=== PATIENT | male | born 1965 | race American Indian/Alaskan Native ===

== ENCOUNTER 2017-04-13 07:16 | Emergency (ER) | payer MEDICAID ==
[2017-04-13 07:53] VITALS: TEMP 98.5
--- NOTE | 2017-04-13 07:59 | ED PDOC ---
Arrival/HPI - General Chief Complaint: Flu-like Symptoms Time Seen by Provider: 04/13/17 07:18 - History of Present Illness Narrative History of Present Illness (Text): 04/13/17 07:48 Pt is a 51 yo M with PMH of HTN presents to ED with 4 day history of flu-like symptoms. Pt complains of productive cough with yellow sputum, alternating fever and chills, diffuse body aches, sore throat, shortness of breath, decreased PO intake, constipation, and sinus congestion. Pt states that several of his co-workers have presented with similar symptoms. Pt denies ear pain, change in vision, change in voice, CP, n/v/d, abdominal pain, [place], or dizziness. Pt also complaining of cut on left ear after shaving and right 2nd toe pain/ discoloration without injury. Pt states that toe started to bother him while at work 1 week ago. Over this time patient states that swelling, discoloration, and pain has decreased overall, but still persists. Pt denies any gait changes, ROM change, or sensation change. (Gray Guo) Past Medical History - Provider Review Nursing Documentation Reviewed: Yes - Infectious Disease Hx of Infectious Diseases: None - Cardiac Hx Hypertension: Yes - Pulmonary Hx Bronchitis: Yes - Psychiatric Hx Substance Use: No - Surgical History Hx Eye Surgery: Yes (right eye socket repair) - Anesthesia Hx Anesthesia: Yes Hx Anesthesia Reactions: No Hx Malignant Hyperthermia: No Family/Social History - Physician Review Nursing Documentation Reviewed: Yes Family/Social History: Other (Non-contributory) Smoking Status: Former Smoker Hx Alcohol Use: No Hx Substance Use: No Allergies/Home Meds Allergies/Adverse Reactions: Allergies No Known Allergies Allergy (Verified 04/13/17 07:33) Home Medications: Home Meds Medication Instructions Recorded Confirmed Lisinopril [Zestril] 10 mg PO DAILY 04/13/17 04/13/17 amLODIPine [Norvasc] 1 tab PO DAILY 04/13/17 04/13/17 Review of Systems - Review of Systems Constitutional: Fatigue, Fevers Eyes: absent: Vision Changes ENT: Sore Throat, Sinus Congestion. absent: Rhinorrhea, Epistaxis Respiratory: SOB, Cough, Sputum Cardiovascular: Normal Gastrointestinal: Constipation. absent: Abdominal Pain, Diarrhea, Nausea, Vomiting Genitourinary Male: Normal Musculoskeletal: Myalgias Skin: Normal Neurological: Normal Endocrine: Normal Hemo/Lymphatic: Normal Psychiatric: Normal Physical Exam Vital Signs Reviewed: Yes Temperature: Afebrile Blood Pressure: Normal Pulse: Regular Respiratory Rate: Normal Appearance: Positive for: Well-Appearing Pain Distress: Mild Mental Status: Positive for: Alert and Oriented X 3 - Systems Exam Head: Present: Atraumatic, Normocephalic Extroacular Muscles: Present: EOMI Conjunctiva: Present: Normal Mouth: Present: Dry Pharnyx: Present: Normal. No: ERYTHEMA, EXUDATE, TONSILS ENLARGED Nose (External): Present: Atraumatic Nose (Internal): Present: Normal Inspection Neck: Present: Normal Range of Motion. No: Paraspinal Tenderness, Lymphadenopathy Respiratory/Chest: Present: Clear to Auscultation. No: Respiratory Distress, Accessory Muscle Use, Wheezes, Rales, Rhonchi Cardiovascular: Present: Regular Rate and Rhythm, Normal S1, S2. No: Murmurs, Rub, Gallop Abdomen: No: Tenderness, Distention, Rebound, Guarding Back: Present: Normal Inspection Upper Extremity: Present: Normal Inspection Lower Extremity: Present: Other (discoloration, TTP, swelling of right 2nd toe. No fluctuance.) Neurological: Present: GCS=15, CN II-XII Intact, Speech Normal Skin: Present: Warm, Dry, Normal Color Lymphatic: No: Cervical Adenopathy Psychiatric: Present: Alert, Oriented x 3 Vital Signs Temp Pulse Resp BP Pulse Ox 04/13/17 09:17 79 18 132/89 98 04/13/17 07:50 98.5 F 69 17 129/86 96 04/13/17 07:21 98.7 F 68 19 136/84 99 Medical Decision Making ED Course and Treatment: Patient Seen With Resident: In agreement with resident note which contains more details about the patient. Patient was seen and evaluated with resident. Came up with plan and treatment together. Patient is afebrile in ED. No respiratory distress. Nontoxic appearing. Symptoms for four days. Lab work reviewed with patient. Influenza negative. Suspect viral illness vs. bronchitis. Afebrile, nontoxic appearing in ED. Will d/c with abx for possible bronchitis, treatment of possible early toe cellulitis. Stressed need for follow-up. No streaking noted in foot, strong pulses. No calf pain. 04/13/17 09:43 (Juan A Farah) 04/13/17 08:08 Assessment: 51 yo M presents to ED with 4 day history of flu like symptoms and 1 week history of right 2nd toe pain/swelling. Plan: - CBC - CMP - Influenza - 500 cc NS bolus - Reassess and Disposition 04/13/17 09:35 Influenza negative. Labs suggestive of viral illness likely URI, bronchitis. Results discussed with patient. Instructed patient complete 7 day course of antibiotics and keep right 2nd toe clean and use warm soaks. Informed patient that supportive care would be adequate for treatment. Impression: Acute bronchitis, cellulitis of right 2nd toe (Gray Guo) - Lab Interpretations Lab Results: 04/13/17 08:15 04/13/17 08:15 Lab Results 04/13/17 08:15: Sodium 141, Potassium 3.7, Chloride 108 H, Carbon Dioxide 25, Anion Gap 13, BUN 17, Creatinine 1.1, Est GFR ( Amer) > 60, Est GFR (Non- Af Amer) > 60, Random Glucose 100, Calcium 9.2, Total Bilirubin 1.1, AST 58, ALT 63 H, Alkaline Phosphatase 60, Total Protein 7.5, Albumin 3.9, Globulin 3.5 , Albumin/Globulin Ratio 1.1 04/13/17 08:15: WBC 4.4 L, RBC 4.80, Hgb 13.2 L, Hct 41.7 L, MCV 86.9, MCH 27.5 , MCHC 31.7, RDW 14.1, Plt Count 220, MPV 10.1, Gran % 48.2 L, Lymph % (Auto) 42.5 H, Cocke % (Auto) 7.5 H, Eos % (Auto) 1.1 L, Baso % (Auto) 0.7, Gran # 2.13 , Lymph # (Auto) 1.9, Cocke # (Auto) 0.3, Eos # (Auto) 0.1, Baso # (Auto) 0.03 04/13/17 07:50: Influenza Typ A,B (EIA) Negative for flu a/b - Medication Orders Current Medication Orders: Discontinued Medications Sodium Chloride (Sodium Chloride 0.9%) 500 mls @ 999 mls/hr IV .Q31M STA Stop: 04/13/17 08:33 Last Admin: 04/13/17 08:18 Dose: 999 mls/hr eMAR Start Stop Document 04/13/17 08:18 ABIOLA (Rec: 04/13/17 08:18 ABIOLA [id number]) Intravenous Solution Start Date 04/13/17 Start Time 08:18 End Date 04/13/17 End time 08:48 Total Infusion Time 30 Disposition/Present on Arrival - Present on Arrival Any Indicators Present on Arrival: No History of DVT/PE: No History of Uncontrolled Diabetes: No Urinary Catheter: No History of Decub. Ulcer: No History Surgical Site Infection Following: None - Disposition Have Diagnosis and Disposition been Completed?: Yes Disposition Time: 09:33 Patient Plan: Discharge - Disposition Diagnosis: Acute bronchitis, Cellulitis of second toe of right foot Disposition: HOME/ ROUTINE Condition: STABLE Discharge Instructions (ExitCare): Acute Bronchitis, Cellulitis (ED) Additional Instructions: 1. Complete 7 day course of antibiotics 2. Use over the counter medications for cough and pain 3. Maintain adequate hydration 4. Increase diet as tolerated 5. [facility] [place] within 1 week 6. Return to ED if symptoms worsen Prescriptions: Amoxicillin/Clavulanate [Augmentin 875 MG-125 MG] 1 tab PO BID #14 tab Referrals: PCP,NO [Primary Care Provider] - Follow up with primary [facility] [place] [Outside] - Follow up with primary [facility] [Outside] - Follow up with primary Forms: [employer] [facility] ([place]), WORK NOTE
[2017-04-13] MEDS ORDERED: Sodium Chloride 0.9% 500 ML IV STA (08:03)
[2017-04-13 08:41] LABS: BASO # 0.03 K/mm3 (0.0-2.0); BASO % 0.7 % (0.0-3.0); EOS # 0.1 (0.0-0.7); EOS % 1.1 % (1.5-5.0); GRAN # 2.13 (1.4-6.5); GRAN % 48.2 % (50.0-68.0); HEMOGLOBIN 13.2 g/dL (14.0-18.0); LYMPH # 1.9 (1.2-3.4); LYMPH % 42.5 % (22.0-35.0); MEAN CELL VOLUME 86.9 fl (80.0-105.0); MEAN CORPUSCULAR HEMOGLOBIN 27.5 pg (25.0-35.0); MEAN CORPUSCULAR HGB CONC 31.7 g/dl (31.0-37.0); MEAN PLATELET VOLUME 10.1 fl (7.0-11.0); MONO # 0.3 (0.1-0.6); MONO % 7.5 % (1.0-6.0); RBC 4.8 10^6/uL (3.5-6.1); RED CELL DISTRIBUTION WIDTH 14.1 % (11.5-14.5); WHITE BLOOD COUNT 4.4 10^3/ul (4.5-11.0)
[2017-04-13 08:55] LABS: ALB/GLOB RATIO 1.1 (1.1-1.8); ALBUMIN 3.9 g/dL (3.0-4.8); ALT/SGPT 63 U/L (7-56); AST/SGOT 58 U/L (17-59); BLOOD UREA NITROGEN 17 mg/dL (7-21); CALCIUM 9.2 mg/dL (8.4-10.5); GFR AFRICAN-AMERICAN > 60; GFR NON-AFRICAN AMERICAN > 60
[2017-04-13 09:43] VITALS: BP 132/89; PULSE 79; RESP 18; O2SAT 98
== END 2017-04-13 09:47 | disposition home or self-care (01) ==
LOC: ED 07:16
DX: J20.9 Acute bronchitis, unspecified (principal); L03.031 Cellulitis of right toe; I10 Essential (primary) hypertension; Z87.891 Personal history of nicotine dependence
CPT/HCPCS: 80053; 85025; 87804; 99284; J7040

== ENCOUNTER 2017-07-01 11:41 | Emergency (ER) | payer OTHER ==
[2017-07-01 11:47] VITALS: BMI 27.3
[2017-07-01 11:48] VITALS: BP 129/88; RESP 18; TEMP 97.5
[2017-07-01] MEDS ORDERED: Oxycodone/Acetaminophen 5/325 mg Tab PO STA (12:08)
--- NOTE | 2017-07-01 12:14 | ED PDOC ---
Arrival/HPI - General Chief Complaint: Lower Extremity Problem/Injury Time Seen by Provider: 07/01/17 12:04 Historian: Patient - History of Present Illness Narrative History of Present Illness (Text): 07/01/17 12:09 51 year old male, with past medical history of hypertension, presents to the Emergency Department complaining of left heal discomfort to the achilles region since 1 week (11days). Patient informs worsening discomfort today, described it at least 10/10 in pain/severity and unrelieved after taking motrin. 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 PMD: Dr. Monty Jean-Baptiste pt works at [employer] Time/Duration: > week (11 days) Symptom Onset: Gradual Symptom Course: Worsening Quality: Aching Severity Level: 10 Activities at Onset: Light Context: Home Past Medical History - Provider Review Nursing Documentation Reviewed: Yes - Travel History Have you recently traveled outside [place] w/in the past 3 mons?: No - Past History Past History: No Previous - Infectious Disease Hx of Infectious Diseases: None - Cardiac Hx Hypertension: Yes - Pulmonary Hx Bronchitis: Yes - Psychiatric Hx Substance Use: No - Surgical History Hx Eye Surgery: Yes (right eye socket repair) - Anesthesia Hx Anesthesia: Yes Hx Anesthesia Reactions: No Hx Malignant Hyperthermia: No Family/Social History - Physician Review Nursing Documentation Reviewed: Yes Family/Social History: No Known Family HX Smoking Status: Former Smoker Hx Alcohol Use: No Hx Substance Use: No Hx Substance Use Treatment: No Allergies/Home Meds Allergies/Adverse Reactions: Allergies No Known Allergies Allergy (Verified 04/13/17 07:33) Home Medications: Home Meds Medication Instructions Recorded Confirmed Lisinopril [Zestril] 10 mg PO DAILY 04/13/17 07/01/17 amLODIPine [Norvasc] 1 tab PO DAILY 04/13/17 07/01/17 Review of Systems - Physician Review All systems were reviewed & negative as marked: Yes - Review of Systems Constitutional: Normal. absent: Fevers Eyes: Normal ENT: Normal Respiratory: Normal. absent: SOB Cardiovascular: Normal. absent: Chest Pain Gastrointestinal: Normal. absent: Abdominal Pain, Stool Changes, Diarrhea, Nausea, Vomiting Genitourinary Male: Normal. absent: Urinary Output Changes Musculoskeletal: Other (left heal discomfort to achilles region) Skin: Normal Neurological: Normal Endocrine: Normal Hemo/Lymphatic: Normal Psychiatric: Normal Physical Exam - Physical Exam Narrative Physical Exam (Text): 07/01/17 12:17 General: alert/awake, GCS = 15, oriented x 3, resting in bed, uncomfortable, cooperative, interactive; NAD Head: NC/AT EYE: PERRLA, EOMI, sclera anicteric, no nystagmus, no photophobia; wearing eye glasses Facial: WNL Oral: uvula/tongue are midline, no exudate/lesions, no drooling/stridor, no dysphonia; intact dentitions NECK: intact ROM, no midline tenderness, no nuchal rigidity, no meningeal signs ; no step off Chest: CTA b/l, no w/r/r; no tachypenia, no accessory muscle use noted Cardiac: +S1, +S2, no m/r/r, no tachycardia Abdominal: +BS, soft/nd/nt, well nourished patient; no masses/rebound/guarding/ rigidity; no reza's sign, no mcburney's point tenderness Extremities: intact ROM, strength 5/5 grossly intact in all limbs, neurovasc intact b/l; + ambulatory favoring left foot/leg; reflex +2/2; + left mid Achilles region of swelling is noted, + tender on exam, NON-fluctuant, no induration, no overlaying skin erythema BACK: no step off, no midline tenderness, NO crepitus, no gross deformities noted; Intact ROM SKIN: cap refill < 1 sec, no ulcerations, no petechiae, no rashes NEURO: CNII-XII WNL, no facial asymmetries, no slurr speech, oriented x 3 Psych: normal insight, normal affect; follows command with ease Vital Signs Reviewed: Yes Vital Signs Temp Pulse Resp BP Pulse Ox 07/01/17 11:47 97.5 F L 79 18 129/88 97 Temperature: Afebrile Blood Pressure: Normal Pulse: Regular Respiratory Rate: Normal Appearance: Positive for: Well-Appearing, Non-Toxic, Uncomfortable, Other (alert /awake, GCS = 15, oriented x 3, resting in bed, NAD, cooperative, follows command with ease) Pain Distress: None Mental Status: Positive for: Alert and Oriented X 3 - Systems Exam Head: Present: Atraumatic, Normocephalic Medical Decision Making ED Course and Treatment: 07/01/17 12:18 Impression: 51 year old male presents to the Emergency Department for left heal discomfort. I have considered all of the differential diagnostics regarding patient's chief medical complaints/ clinical findings, including but not limited to: rule out sprain unlikely fracture vs possible cyst vs. inflammatory disorder i.e. gout Plan: -- Motrin -- Oxycodone -- Crutches -- Reassess and disposition Progress Notes: 07/01/17 14:05 pt is resting in bed pt is not in any distress + 7-8/10 pain is noted but is improved compare to initial presentation pt is made aware of his medical results pt is encouraged no heavy weight bearing/prolonged standing/walking pt will f/u as directed pt will be discharged home Re-evaluation Time: 14:15 Reassessment Condition: Improving,but remains with symptoms - RAD Interpretation Narrative RAD Interpretations (Text): 07/01/17 14:29 PROCEDURE: Left Ankle Radiographs. HISTORY: left achilles/heal pain; no trauma COMPARISON: None FINDINGS: BONES: Normal. No fracture. JOINTS: Normal. No osteoarthritis. Ankle mortise maintained. Talar dome intact SOFT TISSUES: Normal. OTHER FINDINGS: Incidental os peroneum accessory ossification center IMPRESSION: No fracture or lytic lesion. . No prominent calcaneal spurring. No gross calcaneal stress fracture Incidentally noted os peroneum accessory ossification center -bordering the cuboid PROCEDURE: Left Foot Radiographs. HISTORY: left achilles/heal pain; no trauma COMPARISON: None. FINDINGS: BONES: No prominent calcaneal spurring. No gross calcaneal stress fracture Incidentally noted os peroneum accessory ossification center -bordering the cuboid JOINTS: Minimal 1st metatarsal-phalangeal joint space narrowing early degenerative changes inferred SOFT TISSUES: Normal. OTHER FINDINGS: Sissoring of the 4th and 5th toes over the 3rd and 4th toes respectively. IMPRESSION: No fracture or lytic lesion. No calcaneal spur or calcaneal stress fracture. Incidentally noted os peroneum accessory ossification center -bordering the cuboid Radiology Orders: 07/01/17 12:54 FOOT LEFT 3 VIEWS ROUTINE [RAD] Stat 07/01/17 12:55 ANKLE LEFT 3 VIEWS ROUTINE [RAD] Stat Gsa Coordinator: Radiologist - Medication Orders Current Medication Orders: Discontinued Medications Ibuprofen (Motrin Tab) 600 mg PO STAT STA Stop: 07/01/17 12:09 Last Admin: 07/01/17 12:25 Dose: Not Given Non-Admin Reason: Patient Refused Oxycodone/Acetaminophen (Percocet 5/325 Mg Tab) 1 tab PO STAT STA Stop: 07/01/17 12:09 Last Admin: 07/01/17 12:25 Dose: Not Given Non-Admin Reason: Patient Refused - Scribe Statement The provider has reviewed the documentation as recorded by the Scribe Abigail Fay. All medical record entries made by the Scribe were at my direction and personally dictated by me. I have reviewed the chart and agree that the record accurately reflects my personal performance of the history, physical exam, medical decision making, and the department course for this patient. I have also personally directed, reviewed, and agree with the discharge instructions and disposition. Disposition/Present on Arrival - Present on Arrival Any Indicators Present on Arrival: No History of DVT/PE: No History of Uncontrolled Diabetes: No Urinary Catheter: No History of Decub. Ulcer: No History Surgical Site Infection Following: None - Disposition Have Diagnosis and Disposition been Completed?: Yes Diagnosis: Foot pain, left, Achilles tendon pain Disposition: HOME/ ROUTINE Disposition Time: 14:31 Patient Plan: Discharge Condition: STABLE Discharge Instructions (ExitCare): Achilles Tendinopathy (DC), Achilles Tendinopathy Exercises Print Language: MOROCCAN Additional Instructions: Make sure to see your doctor in 1-2 days DRINK PLENTY OF FLUIDS take your medications as prescribed lora wrap your left foot avoid heavy lifting avoid prolonged standing/walking STOP SMOKING if you smoke RETURN TO ED IF worse pain, cant breath, persistent vomiting, high fever >101- 102 for hours, altered behavior, slurr speech, facial changes, focal weakness ( arm/leg or both), unable to urinate, heavy/persistent bleeding, passing out, chest pain, or other medical emergencies Prescriptions: Ibuprofen [Motrin] 600 mg PO TID PRN #30 tab PRN Reason: Pain, Mild (1-3) Referrals: Monty Jean-Baptiste MD [Primary Care Provider] - Follow up with primary Stu Jack MD [Staff Provider] - Follow up with primary Will Saldaña DPM [Staff Provider] - Follow up with primary Forms: [facility] (Filipino), WORK NOTE
--- NOTE | 2017-07-01 14:08 | RAD ---
PROCEDURE: Left Ankle Radiographs. HISTORY: left achilles/heal pain; no trauma COMPARISON: None FINDINGS: BONES: Normal. No fracture. JOINTS: Normal. No osteoarthritis. Ankle mortise maintained. Talar dome intact SOFT TISSUES: Normal. OTHER FINDINGS: Incidental os peroneum accessory ossification center IMPRESSION: No fracture or lytic lesion. . No prominent calcaneal spurring. No gross calcaneal stress fracture Incidentally noted os peroneum accessory ossification center -bordering the cuboid
--- NOTE | 2017-07-01 14:10 | RAD ---
PROCEDURE: Left Foot Radiographs. HISTORY: left achilles/heal pain; no trauma COMPARISON: None. FINDINGS: BONES: No prominent calcaneal spurring. No gross calcaneal stress fracture Incidentally noted os peroneum accessory ossification center -bordering the cuboid JOINTS: Minimal 1st metatarsal-phalangeal joint space narrowing early degenerative changes inferred SOFT TISSUES: Normal. OTHER FINDINGS: Sissoring of the 4th and 5th toes over the 3rd and 4th toes respectively. IMPRESSION: No fracture or lytic lesion. No calcaneal spur or calcaneal stress fracture. Incidentally noted os peroneum accessory ossification center -bordering the cuboid
[2017-07-01 14:43] VITALS: PULSE 62; O2SAT 98
== END 2017-07-01 14:41 | disposition home or self-care (01) ==
LOC: ED 11:41
DX: M79.672 Pain in left foot (principal); M76.62 Achilles tendinitis, left leg

== ENCOUNTER 2017-08-30 10:38 | Emergency (ER) | payer OTHER ==
[2017-08-30 10:38] VITALS: BMI 27.3
--- NOTE | 2017-08-30 11:56 | ED PDOC ---
Arrival/HPI - General Chief Complaint: Flu-like Symptoms Time Seen by Provider: 08/30/17 11:14 Historian: Patient - History of Present Illness Narrative History of Present Illness (Text): 08/30/17 11:51 51yo male with past medical history of hypertension who present with complaint of generalized bodyache, poor appetite, rhinorrhea, chills, subjective fever x 2days. He also complaint of rash to the back of his neck for 5weeks. States he was given Ketoconazole and cloritimazole without relieve. Reports mild intermittent nonproductive cough. He denies chest pain, SOB, diaphoresis, nausea , vomiting, abdominal pain, nuchal ridgity, sick contact, travel. Past Medical History - Provider Review Nursing Documentation Reviewed: Yes - Past History Past History: No Previous - Infectious Disease Hx of Infectious Diseases: None - Cardiac Hx Cardiac Disorders: Yes Hx Hypertension: Yes - Pulmonary Hx Respiratory Disorders: Yes Hx Bronchitis: Yes - Neurological Hx Neurological Disorder: No - HEENT Hx HEENT Disorder: No - Renal Hx Renal Disorder: No - Endocrine/Metabolic Hx Endocrine Disorders: No - Hematological/Oncological Hx Blood Disorders: No - Integumentary Hx Dermatological Disorder: Yes Other/Comment: TINEA - Musculoskeletal/Rheumatological Hx Musculoskeletal Disorders: No - Gastrointestinal Hx Gastrointestinal Disorders: No - Genitourinary/Gynecological Hx Genitourinary Disorders: No - Psychiatric Hx Psychophysiologic Disorder: No Hx Substance Use: No - Surgical History Hx Eye Surgery: Yes (right eye socket repair) Hx Orthopedic Surgery: Yes (R KNEE) - Anesthesia Hx Anesthesia: Yes Hx Anesthesia Reactions: No Hx Malignant Hyperthermia: No Family/Social History - Physician Review Nursing Documentation Reviewed: Yes Family/Social History: Unknown Family HX Smoking Status: Former Smoker Hx Alcohol Use: No Hx Substance Use: No Hx Substance Use Treatment: No Allergies/Home Meds Allergies/Adverse Reactions: Allergies No Known Allergies Allergy (Verified 08/30/17 11:02) Home Medications: Home Meds Medication Instructions Recorded Confirmed Lisinopril [Zestril] 10 mg PO DAILY 04/13/17 08/30/17 amLODIPine [Norvasc] 1 tab PO DAILY 04/13/17 08/30/17 Review of Systems - Physician Review All systems were reviewed & negative as marked: Yes - Review of Systems Constitutional: Fatigue, Fevers Eyes: Normal ENT: Rhinorrhea Respiratory: Cough. absent: SOB, Sputum, Wheezing Cardiovascular: Normal Gastrointestinal: Normal Genitourinary Male: Normal Musculoskeletal: Normal Skin: Normal Neurological: Normal Endocrine: Normal Hemo/Lymphatic: Normal Psychiatric: Normal Physical Exam Vital Signs Reviewed: Yes Vital Signs Temp Pulse Resp BP Pulse Ox 08/30/17 12:38 97.9 F 88 18 120/68 100 08/30/17 12:35 97.9 F 88 18 120/68 100 08/30/17 11:02 98.8 F 69 16 124/82 97 Temperature: Afebrile Blood Pressure: Normal Pulse: Regular Respiratory Rate: Normal Appearance: Positive for: Well-Appearing, Non-Toxic, Comfortable Pain Distress: None Mental Status: Positive for: Alert and Oriented X 3 - Systems Exam Head: Present: Atraumatic, Normocephalic Pupils: Present: PERRL Extroacular Muscles: Present: EOMI Conjunctiva: Present: Normal Mouth: Present: Moist Mucous Membranes Neck: Present: Normal Range of Motion Respiratory/Chest: Present: Clear to Auscultation, Good Air Exchange. No: Respiratory Distress, Accessory Muscle Use, Wheezes, Decreased Breath Sounds, Rales, Retracting, Rhonchi, Tachypneic Cardiovascular: Present: Regular Rate and Rhythm, Normal S1, S2. No: Murmurs Abdomen: No: Tenderness, Distention, Peritoneal Signs Back: Present: Normal Inspection Upper Extremity: Present: Normal Inspection. No: Cyanosis, Edema Lower Extremity: Present: Normal Inspection. No: Edema Neurological: Present: GCS=15, CN II-XII Intact, Speech Normal Skin: Present: Warm, Dry, Rashes (scaly dry patchy rash noted on the posterior neck), Normal Color Psychiatric: Present: Alert, Oriented x 3, Normal Insight, Normal Concentration Medical Decision Making ED Course and Treatment: 08/30/17 18:50 Pt in emergency department for stated history. He was hemodynamically stable and in no distress in emergency department . Chest xray was NAD. Pt's PE was benign. he was treated symptomatically with ibuprofen for mylagia. Result was DW the pt. Pt likely have viral syndrome and was DC home with Tessalon perles and Ibuprofen 600mg. He was advised to drink plenty of fluid and rest. Referred to his PMD. - RAD Interpretation Radiology Orders: 08/30/17 11:21 CHEST TWO VIEWS (PA/LAT) [RAD] Stat - Medication Orders Current Medication Orders: Discontinued Medications Hydrocortisone Valerate (Westcort) 30 gm TOP ONCE STA Stop: 08/30/17 11:59 Last Admin: 08/30/17 12:34 Dose: 1 cre Ibuprofen (Motrin Tab) 600 mg PO STAT STA Stop: 08/30/17 11:23 Last Admin: 08/30/17 11:42 Dose: 600 mg MAR Pain/Vitals Document 08/30/17 11:42 [facility] (Rec: 08/30/17 11:43 [email or web address]) Pain Reassessment Is This A Pain ReAssessment? No Disposition/Present on Arrival - Present on Arrival Any Indicators Present on Arrival: No History of DVT/PE: No History of Uncontrolled Diabetes: No Urinary Catheter: No History of Decub. 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
[2017-08-30] MEDS ORDERED: Hydrocortisone Val 0.2% Cr 15 GM TUBE TOP STA (11:58)
[2017-08-30 12:39] VITALS: BP 120/68; PULSE 88; RESP 18; TEMP 97.9; O2SAT 100
== END 2017-08-30 12:40 | disposition home or self-care (01) ==
LOC: ED 10:38
DX: R21 Rash and other nonspecific skin eruption (principal); R05 Cough; R53.81 Other malaise; Z87.891 Personal history of nicotine dependence; I10 Essential (primary) hypertension

== ENCOUNTER 2017-09-07 11:44 | Emergency (ER) | payer OTHER ==
[2017-09-07 11:44] VITALS: BMI 27.3
[2017-09-07 11:50] VITALS: BP 126/86; PULSE 63; RESP 18; TEMP 97.9; O2SAT 99
--- NOTE | 2017-09-07 12:21 | ED PDOC ---
Arrival/HPI - General Historian: Patient - History of Present Illness Time/Duration: > week Symptom Course: Worsening - General Chief Complaint: Cough, Cold, Congestion Time Seen by Provider: 09/07/17 11:52 - History of Present Illness Narrative History of Present Illness (Text): 09/07/17 12:20 Patient is a 51 year old male with past medical history of HTN who presents to the ED complaining of cold like symptoms for 11 days. Patient states that he has been having productive cough, generalized body aches, decreased PO intake. He was seen in the ED on 08/30/17 for the same complaints. He was given Motrin and tessalon pearls for cough. CXR at that time was negative for active disease. He states that the cough has mildly improved, however he feels like his symptoms are getting worse. Admits to feeling hot/cold flashes. Denies fevers, N/V, changes in vision/hearing, chest pain, palpitations, sob, abdominal pain, urinary symptoms. Patient has an appointment on 09/11 to see his PMD. (Mary Haji) Past Medical History - Provider Review Nursing Documentation Reviewed: Yes - Past History Past History: No Previous - Infectious Disease Hx of Infectious Diseases: None - Cardiac Hx Cardiac Disorders: Yes Hx Hypertension: Yes - Pulmonary Hx Respiratory Disorders: Yes Hx Bronchitis: Yes - Neurological Hx Neurological Disorder: No - HEENT Hx HEENT Disorder: No - Renal Hx Renal Disorder: No - Endocrine/Metabolic Hx Endocrine Disorders: No - Hematological/Oncological Hx Blood Disorders: No - Integumentary Hx Dermatological Disorder: Yes Other/Comment: TINEA - Musculoskeletal/Rheumatological Hx Musculoskeletal Disorders: No - Gastrointestinal Hx Gastrointestinal Disorders: No - Genitourinary/Gynecological Hx Genitourinary Disorders: No - Psychiatric Hx Psychophysiologic Disorder: No Hx Substance Use: No - Surgical History Hx Eye Surgery: Yes (right eye socket repair) Hx Orthopedic Surgery: Yes (R KNEE) - Anesthesia Hx Anesthesia: Yes Hx Anesthesia Reactions: No Hx Malignant Hyperthermia: No Family/Social History - Physician Review Nursing Documentation Reviewed: Yes Family/Social History: Unknown Family HX Smoking Status: Former Smoker Hx Alcohol Use: No Hx Substance Use: No Hx Substance Use Treatment: No Allergies/Home Meds Allergies/Adverse Reactions: Allergies No Known Allergies Allergy (Verified 09/07/17 11:50) Home Medications: Home Meds Medication Instructions Recorded Confirmed Lisinopril [Zestril] 10 mg PO DAILY 04/13/17 09/07/17 amLODIPine [Norvasc] 1 tab PO DAILY 04/13/17 09/07/17 Review of Systems - Review of Systems Constitutional: Fatigue. absent: Fevers Eyes: absent: Vision Changes ENT: absent: Hearing Changes Respiratory: Cough, Sputum. absent: SOB, Wheezing Cardiovascular: absent: Chest Pain, Palpitations, Calf Pain Gastrointestinal: Appetite Changes. absent: Abdominal Pain, Constipation, Diarrhea, Nausea, Vomiting Genitourinary Male: absent: Dysuria, Frequency, Hematuria Musculoskeletal: Other (Joint pain) Skin: absent: Rash, Skin Lesions Neurological: Normal. absent: Headache, Dizziness Physical Exam Vital Signs Reviewed: Yes Temperature: Afebrile Blood Pressure: Normal Pulse: Regular Respiratory Rate: Normal Appearance: Positive for: Well-Appearing, Non-Toxic Pain Distress: None Mental Status: Positive for: Alert and Oriented X 3 - Systems Exam Head: Present: Atraumatic, Normocephalic Pupils: Present: PERRL Extroacular Muscles: Present: EOMI Conjunctiva: Present: Normal Mouth: Present: Moist Mucous Membranes Neck: Present: Normal Range of Motion Respiratory/Chest: Present: Clear to Auscultation, Good Air Exchange. No: Respiratory Distress Cardiovascular: Present: Regular Rate and Rhythm, Normal S1, S2 Abdomen: Present: Normal Bowel Sounds. No: Tenderness Upper Extremity: Present: Normal Inspection Lower Extremity: Present: Normal Inspection Neurological: Present: GCS=15, CN II-XII Intact Skin: Present: Warm, Dry, Normal Color Psychiatric: Present: Alert, Oriented x 3 Vital Signs Temp Pulse Resp BP Pulse Ox 09/07/17 11:49 97.9 F 63 18 126/86 99 Medical Decision Making ED Course and Treatment: 09/07/17 12:08 Patient is a 51 year old male with past medical history of HTN who presents with productive cough, generalized body aches, decreased appetite x 11 days. Patient was seen in the ED last week for similar symptoms with minimal improvement. Will discharge patient home with Allyson sanz and have patient follow up with his PMD on 09/11/17 as scheduled. (Mary Haji) Seen and examined with resident. 51 year old M p/w cough x 11 days, not improving. On exam, clear lung sounds. (Louie Smalls T) Disposition/Present on Arrival - Present on Arrival Any Indicators Present on Arrival: No History of DVT/PE: No History of Uncontrolled Diabetes: No Urinary Catheter: No History of Decub. Ulcer: No History Surgical Site Infection Following: None - Disposition Have Diagnosis and Disposition been Completed?: Yes Disposition Time: 12:38 Patient Plan: Discharge - Disposition Diagnosis: Upper respiratory infection Disposition: HOME/ ROUTINE Condition: GOOD Discharge Instructions (ExitCare): Bacterial Upper Respiratory Infection, Adult Prescriptions: Azithromycin [Z-Moy] 250 mg PO DAILY #6 tab Forms: [employer] ([employer])
== END 2017-09-07 12:50 | disposition home or self-care (01) ==
LOC: ED 11:44
DX: J06.9 Acute upper respiratory infection, unspecified (principal); Z87.891 Personal history of nicotine dependence

== ENCOUNTER 2017-09-23 17:58 | Emergency (ER) | payer OTHER ==
[2017-09-23 17:59] VITALS: BMI 27.3
[2017-09-23 18:22] VITALS: RESP 18; TEMP 98.8
--- NOTE | 2017-09-23 18:58 | ED PDOC ---
Arrival/HPI - General Chief Complaint: Lower Extremity Problem/Injury Time Seen by Provider: 09/23/17 18:51 Historian: Patient - History of Present Illness Narrative History of Present Illness (Text): 09/23/17 18:58 This 51 yo male with pmh htn, presents to this ED c/o bilateral knee pain x 6 months. Patient stated right knee pain is worse than left knee. Patient stated pain has been progressively worsen. Denies trauma, weakness, paresthesias, leg swelling, calf pain, recent travel, sob, cp, skin rash, or abnormal gait. Time/Duration: Other (see hpi) Context: Home Past Medical History - Provider Review Nursing Documentation Reviewed: Yes - Past History Past History: No Previous - Infectious Disease Hx of Infectious Diseases: None - Cardiac Hx Cardiac Disorders: Yes Hx Hypertension: Yes - Pulmonary Hx Respiratory Disorders: Yes Hx Bronchitis: Yes - Neurological Hx Neurological Disorder: No - HEENT Hx HEENT Disorder: No - Renal Hx Renal Disorder: No - Endocrine/Metabolic Hx Endocrine Disorders: No - Hematological/Oncological Hx Blood Disorders: No - Integumentary Hx Dermatological Disorder: Yes Other/Comment: TINEA - Musculoskeletal/Rheumatological Hx Musculoskeletal Disorders: No - Gastrointestinal Hx Gastrointestinal Disorders: No - Genitourinary/Gynecological Hx Genitourinary Disorders: No - Psychiatric Hx Psychophysiologic Disorder: No Hx Substance Use: No - Surgical History Hx Eye Surgery: Yes (right eye socket repair) Hx Orthopedic Surgery: Yes (R KNEE) - Anesthesia Hx Anesthesia: Yes Hx Anesthesia Reactions: No Hx Malignant Hyperthermia: No Family/Social History - Physician Review Nursing Documentation Reviewed: Yes Family/Social History: Other (noncontributory) Smoking Status: Former Smoker Hx Alcohol Use: No Hx Substance Use: No Hx Substance Use Treatment: No Allergies/Home Meds Allergies/Adverse Reactions: Allergies No Known Allergies Allergy (Verified 09/07/17 11:50) Home Medications: Home Meds Medication Instructions Recorded Confirmed Lisinopril [Zestril] 10 mg PO DAILY 04/13/17 09/23/17 amLODIPine [Norvasc] 1 tab PO DAILY 04/13/17 09/23/17 Review of Systems - Review of Systems Constitutional: Normal. absent: Fatigue, Weight Change, Fevers, Night Sweats Eyes: Normal ENT: Normal Respiratory: Normal Cardiovascular: Normal Gastrointestinal: Normal Genitourinary Male: Normal Musculoskeletal: Other (b/l knee pain) Skin: Normal Neurological: Normal Endocrine: Normal Hemo/Lymphatic: Normal Psychiatric: Normal Physical Exam Vital Signs Temp Pulse Resp BP Pulse Ox 09/23/17 18:16 98.8 F 79 18 139/69 98 Temperature: Afebrile Blood Pressure: Normal Pulse: Regular Respiratory Rate: Normal Appearance: Positive for: Well-Appearing, Non-Toxic, Comfortable Pain Distress: None Mental Status: Positive for: Alert and Oriented X 3 - Systems Exam Head: Present: Atraumatic, Normocephalic Pupils: Present: PERRL Extroacular Muscles: Present: EOMI Conjunctiva: Present: Normal Mouth: Present: Moist Mucous Membranes Neck: Present: Normal Range of Motion Upper Extremity: Present: Normal Inspection, Normal ROM, NORMAL PULSES, Neurovascularly Intact, Capillary Refill < 2s Lower Extremity: Present: NORMAL PULSES, Normal ROM, Neurovascularly Intact, Capillary Refill < 2 s, Other (Knee joint is nontender b/l. Right knee appears mild swollen without erythema. b/l FROM. Diggs test negative. No calf tenderness, no leg edema. ). No: Edema, CALF TENDERNESS, Erythema, Deformity, Temperature Abnormalties Neurological: Present: GCS=15, CN II-XII Intact, Speech Normal, Motor Func Grossly Intact, Normal Sensory Function, Normal Cerebellar Funct, Gait Normal Skin: Present: Warm, Dry, Normal Color. No: Rashes Psychiatric: Present: Alert, Oriented x 3, Normal Insight, Normal Concentration Medical Decision Making ED Course and Treatment: 09/23/17 20:14 Re-evaluation. Patient feels better. Discussed results and plan with patient who expresses understanding. All questions answered and there is agreement with the plan to discharge home with instructions. Patient stable for discharge. Return if symptoms persist or worsen. Re-evaluation Time: 20:14 Reassessment Condition: Re-examined, Improved - RAD Interpretation Radiology Orders: 09/23/17 18:59 KNEE W PATELLA BILAT 3 VIEW [RAD] Stat - Medication Orders Current Medication Orders: Discontinued Medications Ketorolac Tromethamine (Toradol) 30 mg IM STAT STA Stop: 09/23/17 19:05 Last Admin: 09/23/17 19:20 Dose: 30 mg MAR Pain Assessment Document 09/23/17 19:20 SF (Rec: 09/23/17 19:20 SF [id number]) Pain Reassessment Is this a pain reassessment? Yes Sleep Is patient sleeping during reassessment? No Presence of Pain Presence of Pain Yes IM Administration Charges Document 09/23/17 19:20 (Rec: 09/23/17 19:20 [id number]) Injection Site MAR Injection Site Left Deltoid Charges for Administration # of IM Administrations 1 Disposition/Present on Arrival - Present on Arrival Any Indicators Present on Arrival: No History of DVT/PE: No History of Uncontrolled Diabetes: No Urinary Catheter: No History of Decub. Ulcer: No History Surgical Site Infection Following: None - Disposition Have Diagnosis and Disposition been Completed?: Yes Diagnosis: Knee pain, bilateral Disposition: HOME/ ROUTINE Disposition Time: 20:18 Patient Plan: Discharge Patient Problems: Current Active Problems Problem Status Onset Knee pain, bilateral Acute Condition: GOOD Discharge Instructions (ExitCare): Chronic Knee Pain (DC) Additional Instructions: Call privvate doctor for follow up visit in 1-2 days. Take medication as instructed. Return to emergency if symptoms worsen. Call orthopedist for revaluation. Prescriptions: Indomethacin [Indocin] 50 mg PO TID PRN #30 cap PRN Reason: Pain, Severe (8-10) Referrals: Alexis Easley DO [Staff Provider] - Follow up with primary Forms: [employer] (Chinese)
[2017-09-23 20:40] VITALS: BP 133/72; PULSE 80; O2SAT 100
--- NOTE | 2017-09-24 10:57 | RAD ---
Date of service: 09/23/2017 PROCEDURE: Bilateral Knee Radiographs. HISTORY: Pain. No history of recent/ related trauma provided COMPARISON: None. FINDINGS: BONES: Right Knee: No acute fracture. Proliferative hypertrophic changes emanating from the femoral condyle and tibial plateau regions. Left Knee: Normal. No fracture. JOINTS: Right Knee: Normal. No osteoarthritis. Left knee: Normal. No osteoarthritis. SOFT TISSUES: Right Knee: Normal. Left Knee: Normal. JOINT EFFUSION: Right Knee: Small suprapatellar effusion. Left Knee: None. OTHER FINDINGS: None. IMPRESSION: Unilateral, right degenerative change. No evidence of fracture or other significant pathologic process. Unremarkable. Concordant results with the preliminary interpretation rendered by the emergency department physician procedure.
== END 2017-09-23 20:38 | disposition home or self-care (01) ==
LOC: ED 17:58
DX: M25.562 Pain in left knee (principal); M25.561 Pain in right knee
CPT/HCPCS: 73562; 96372; 99284; J1885

== ENCOUNTER 2017-09-29 06:14 | Observation (INO) | payer OTHER ==
[2017-09-29 06:15] VITALS: BMI 27.3
--- NOTE | 2017-09-29 06:54 | ED PDOC ---
Arrival/HPI - General Chief Complaint: Cough, Cold, Congestion Time Seen by Provider: 09/29/17 06:54 Historian: Patient - History of Present Illness Narrative History of Present Illness (Text): 51 y/o M w/ h/o HTN presenting with persistent cough worsening in the last 5 days. The patient states he had been experiencing productive cough with yellowish brown sputum, chest tightness and generalized myalgias over the last couple days. 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 Of note, the patient reports presenting to the ED on 08/30/17 with similar symptoms and was prescribed azithromycin. He denies taking any additional medicine for his symptoms. He denies any chest pain, headaches, fevers, emesis, abdominal pain, back pain, dizziness, lightheadedness, numbness or tingling. PCP: Dr. Monty Jean-Baptiste Time/Duration: > week Symptom Course: Worsening Quality: Aching, Tightness Severity Level: Moderate Activities at Onset: Rest Context: Home Past Medical History - Provider Review Nursing Documentation Reviewed: Yes - Travel History Have you recently traveled outside [place] w/in the past 3 mons?: No - Past History Past History: No Previous - Infectious Disease Hx of Infectious Diseases: None - Cardiac Hx Cardiac Disorders: Yes Hx Hypertension: Yes - Pulmonary Hx Respiratory Disorders: Yes Hx Bronchitis: Yes - Neurological Hx Neurological Disorder: No - HEENT Hx HEENT Disorder: No - Renal Hx Renal Disorder: No - Endocrine/Metabolic Hx Endocrine Disorders: No - Hematological/Oncological Hx Blood Disorders: No - Integumentary Hx Dermatological Disorder: Yes Other/Comment: TINEA - Musculoskeletal/Rheumatological Hx Musculoskeletal Disorders: No - Gastrointestinal Hx Gastrointestinal Disorders: No - Genitourinary/Gynecological Hx Genitourinary Disorders: No - Psychiatric Hx Psychophysiologic Disorder: No Hx Substance Use: No - Surgical History Hx Eye Surgery: Yes (right eye socket repair) Hx Orthopedic Surgery: Yes (R KNEE) - Anesthesia Hx Anesthesia: Yes Hx Anesthesia Reactions: No Hx Malignant Hyperthermia: No Family/Social History - Physician Review Nursing Documentation Reviewed: Yes Family/Social History: No Known Family HX Smoking Status: Former Smoker Hx Alcohol Use: No Hx Substance Use: No Hx Substance Use Treatment: No Allergies/Home Meds Allergies/Adverse Reactions: Allergies No Known Allergies Allergy (Verified 09/29/17 11:47) Home Medications: Home Meds Medication Instructions Recorded Confirmed Lisinopril [Zestril] 10 mg PO DAILY 04/13/17 09/29/17 amLODIPine [Norvasc] 1 tab PO DAILY 04/13/17 09/29/17 Review of Systems - Review of Systems Constitutional: Fatigue, Night Sweats. absent: Weight Change, Fevers Respiratory: SOB, Cough, Sputum. absent: Wheezing Cardiovascular: absent: Chest Pain, Palpitations, Edema, Syncope Gastrointestinal: Nausea. absent: Abdominal Pain, Constipation, Diarrhea, Vomiting Genitourinary Male: absent: Dysuria, Hematuria Musculoskeletal: Myalgias. absent: Arthralgias, Back Pain, Neck Pain Skin: absent: Rash, Skin Lesions Neurological: absent: Headache, Dizziness, Focal Weakness Physical Exam Vital Signs Reviewed: Yes Vital Signs Temp Pulse Resp BP Pulse Ox 09/29/17 12:08 97.8 F 76 18 123/82 98 09/29/17 10:00 78 18 128/78 97 09/29/17 08:15 86 18 123/92 H 97 09/29/17 06:23 97.8 F 69 19 146/97 H 96 Temperature: Afebrile Blood Pressure: Hypertensive Pulse: Regular Appearance: Positive for: Well-Appearing, Non-Toxic Pain Distress: Mild Mental Status: Positive for: Alert and Oriented X 3 - Systems Exam Head: Present: Atraumatic, Normocephalic Pupils: Present: PERRL Extroacular Muscles: Present: EOMI Conjunctiva: Present: Normal Ears: Present: NORMAL TM, Normal Canal, TM Bulging (Left TM bulging, no effusion or hyperemia noted.), Other (Copious amount of cerumen b/l). No: Erythema Mouth: Present: Moist Mucous Membranes, Normal Tounge, Normal Teeth Pharnyx: Present: Normal. No: ERYTHEMA, EXUDATE, TONSILS ENLARGED, Peritonsilar Swelling Neck: Present: Normal Range of Motion. No: Meningeal Signs, MIDLINE TENDERNESS Respiratory/Chest: Present: Clear to Auscultation, Good Air Exchange. No: Respiratory Distress, Wheezes, Rhonchi Cardiovascular: Present: Regular Rate and Rhythm, Normal S1, S2 Abdomen: Present: Normal Bowel Sounds. No: Tenderness, Distention, Peritoneal Signs Back: No: CVA Tenderness, Midline Tenderness Skin: Present: Warm, Dry, Normal Color Lymphatic: No: Cervical Adenopathy Psychiatric: Present: Alert, Oriented x 3, Normal Insight, Normal Concentration Medical Decision Making ED Course and Treatment: 09/29/17 07:19 Impression 51 y/o M w/ productive cough and chest tightness Differential Diagnoses Include But are Not Limited To: Bronchitis PNA Sinusitis Plan --Labs --EKG --CXR --Duonebs --Solumedrol -- Reassess & Disposition Imaging Chest X-ray IMPRESSION: No acute findings. Dictator: Belle Escalona MD Progress Notes 09/29/2017 09:21 Patient reassessed and states he feels minimally better, but still weak. 09/29/17 10:57 Patient reexamined and states he still has chest tightness and generalized weakness. Shared decision making with patient with discussion resulting in patient desiring to stay in the hospital. 09/29/17 11:[address] Jose Alberto Reid(hospitalist) who accepts patient onto her service for observation. - Lab Interpretations Lab Results: 09/29/17 08:46 09/29/17 08:46 Lab Results 09/29/17 08:46: Sodium 141, Potassium 4.2, Chloride 105, Carbon Dioxide 28, Anion Gap 12, BUN 13, Creatinine 1.0, Est GFR ( Amer) > 60, Est GFR (Non- Af Amer) > 60, Random Glucose 82, Calcium 8.6, Magnesium 2.1, Total Bilirubin 0.8, AST 22, ALT 19, Alkaline Phosphatase 68, Troponin I < 0.01, Total Protein 7.2, Albumin 4.0, Globulin 3.2, Albumin/Globulin Ratio 1.2 09/29/17 08:46: WBC 3.8 L, RBC 4.93, Hgb 13.4 L, Hct 41.3 L, MCV 83.8 D, MCH 27.2, MCHC 32.4, RDW 14.9 H, Plt Count 211, MPV 10.1, Gran % 54.5, Lymph % (Auto ) 37.9 H, [place] % (Auto) 6.6 H, Eos % (Auto) 0.5 L, Baso % (Auto) 0.5, Gran # 2.05, Lymph # (Auto) 1.4, [place] # (Auto) 0.3, Eos # (Auto) 0.0, Baso # (Auto) 0.02 09/29/17 07:00: Urine Color Yellow, Urine Appearance Clear, Urine pH 6.5, Ur Specific [place] 1.010, Urine Protein Negative, Urine Glucose (UA) Negative, Urine Ketones Negative, Urine Blood Negative, Urine Nitrate Negative, Urine Bilirubin Negative, Urine Urobilinogen 0.2, Ur Leukocyte Esterase Negative I have reviewed the lab results: Yes - RAD Interpretation Radiology Orders: 09/29/17 07:04 CHEST TWO VIEWS (PA/LAT) [RAD] Stat - Medication Orders Current Medication Orders: Albuterol Sulfate (Albuterol 0.083% Inhal Reema (2.5 Mg/3 Ml) Ud) 2.5 mg INH Q2H PRN PRN Reason: Shortness of Breath Amlodipine Besylate (Norvasc) 10 mg PO DAILY [facility] Last Admin: 09/29/17 12:51 Dose: 10 mg MAR Blood Pressure Document 09/29/17 12:51 SES (Rec: 09/29/17 12:51 [email or web address]) Blood Pressure Blood Pressure (100/60-150/90) 145/98 Aspirin (Aspirin Chewable) 81 mg PO DAILY [facility]1983 Last Admin: 09/29/17 14:16 Dose: 81 mg Guaifenesin (Robitussin) 100 mg PO Q4H PRN PRN Reason: Cough Lisinopril (Zestril) 10 mg PO DAILY [facility] Last Admin: 09/29/17 12:51 Dose: 10 mg MAR Pulse and Blood Pressure Document 09/29/17 12:51 SES (Rec: 09/29/17 12:51 [email or web address]) Blood Pressure Blood Pressure (100/60-150/90) 145/98 Pantoprazole Sodium (Protonix Inj) 40 mg IVP DAILY [facility] Last Admin: 09/29/17 14:16 Dose: 40 mg IVP Administration Document 09/29/17 14:16 SES (Rec: 09/29/17 14:17 [email or web address]) Charges for Administration # of IVP Administrations 1 Discontinued Medications Albuterol Sulfate (Albuterol 0.083% Inhal Reema (2.5 Mg/3 Ml) Ud) 2.5 mg INH STAT STA Stop: 09/29/17 11:01 Last Admin: 09/29/17 11:42 Dose: 2.5 mg Albuterol/Ipratropium (Duoneb 3 Mg/0.5 Mg (3 Ml) Ud) 3 ml IH STAT STA Stop: 09/29/17 07:05 Last Admin: 09/29/17 07:42 Dose: 3 ml Ketorolac Tromethamine (Toradol) 30 mg IVP STAT STA Stop: 09/29/17 10:20 Last Admin: 09/29/17 10:52 Dose: 30 mg MAR Pain Assessment Document 09/29/17 10:52 [facility] (Rec: 09/29/17 10:52 [id number] Pain Reassessment Is this a pain reassessment? No IVP Administration Document 09/29/17 10:52 [facility] (Rec: 09/29/17 10:52 [id number]) Charges for Administration # of IVP Administrations 1 Methylprednisolone (Solu-Medrol) 125 mg IVP STAT STA Stop: 09/29/17 07:07 Last Admin: 09/29/17 07:42 Dose: 125 mg IVP Administration Document 09/29/17 07:42 [facility] (Rec: 09/29/17 07:42 [id number]) Charges for Administration # of IVP Administrations 1 Pneumococcal Polyvalent Vaccine (Pneumovax 23 Vaccine) 0.5 ml IM .ONCE ONE Stop: 09/29/17 13:42 Last Admin: 09/29/17 14:18 Dose: Immunization Registry Document 09/29/17 14:18 [facility] (Rec: 09/29/17 14:18 [id number]) Immunization Registry Consent Date 09/23/17 Disposition/Present on Arrival - Present on Arrival Any Indicators Present on Arrival: No History of DVT/PE: No History of Uncontrolled Diabetes: No Urinary Catheter: No History of Decub. Ulcer: No History Surgical Site Infection Following: None - Disposition Have Diagnosis and Disposition been Completed?: Yes Diagnosis: Bronchitis Disposition: HOSPITALIZED Disposition Time: 10:57 Patient Plan: Observation Patient Problems: Current Active Problems Problem Status Onset Bronchitis Acute Condition: STABLE
[2017-09-29] MEDS ORDERED: Albuterol-Ipratrop 3 mg / 0.5 (3 ml) UD IH STA (07:04)
[2017-09-29 08:08] LABS: PH,URINE 6.5 (4.7-8.0); URINE BILIRUBIN NEGATIVE (NEGATIVE); URINE BLOOD NEGATIVE (NEGATIVE); URINE GLUCOSE (UA) NEGATIVE (NEGATIVE); URINE LEUKOCYTE ESTERASE NEGATIVE Leu/uL (NEGATIVE); URINE PROTEIN NEGATIVE mg/dL (<30 mg/dL); URINE UROBILINOGEN 0.2 E.U./dL (<1 E.U./dL)
[2017-09-29 08:12] LABS: URINE APPEARANCE CLEAR (CLEAR); URINE COLOR YELLOW (YELLOW)
[2017-09-29 08:51] LABS: BASO # 0.02 K/mm3 (0.0-2.0); BASO % 0.5 % (0.0-3.0); EOS % 0.5 % (1.5-5.0); GRAN # 2.05 (1.4-6.5); GRAN % 54.5 % (50.0-68.0); HEMOGLOBIN 13.4 g/dL (14.0-18.0); LYMPH # 1.4 (1.2-3.4); LYMPH % 37.9 % (22.0-35.0); MEAN CELL VOLUME 83.8 fl (80.0-105.0); MEAN CORPUSCULAR HEMOGLOBIN 27.2 pg (25.0-35.0); MEAN CORPUSCULAR HGB CONC 32.4 g/dl (31.0-37.0); MEAN PLATELET VOLUME 10.1 fl (7.0-11.0); MONO # 0.3 (0.1-0.6); MONO % 6.6 % (1.0-6.0); RBC 4.93 10^6/uL (3.5-6.1); RED CELL DISTRIBUTION WIDTH 14.9 % (11.5-14.5); WHITE BLOOD COUNT 3.8 10^3/ul (4.5-11.0)
[2017-09-29 09:00] LABS: ALB/GLOB RATIO 1.2 (1.1-1.8); ALT/SGPT 19 U/L (7-56); AST/SGOT 22 U/L (17-59); BLOOD UREA NITROGEN 13 mg/dL (7-21); CALCIUM 8.6 mg/dL (8.4-10.5); GFR NON-AFRICAN AMERICAN > 60
[2017-09-29 09:12] LABS: TROPONIN I < 0.01 ng/mL
--- NOTE | 2017-09-29 09:22 | RAD ---
HISTORY: COMPARISON: 08/30/2017. TECHNIQUE: Chest PA and lateral FINDINGS: LINES AND TUBES: None. LUNG AND PLEURA: The lungs are well inflated and clear. No pleural effusion or pneumothorax. HEART AND MEDIASTINUM: The heart is not enlarged. The hilar and mediastinal contours are within normal limits. SKELETAL STRUCTURES: The bony structures are within normal limits for the patient's age. VISUALIZED UPPER ABDOMEN: Normal. OTHER FINDINGS: None. IMPRESSION: No acute findings.
[2017-09-29] MEDS ORDERED: Albuterol 0.083% Inhal Sol (2.5 mg/3 mL) UD INH STA (11:00)
[2017-09-29] MEDS ORDERED: Albuterol-Ipratrop 3 mg / 0.5 (3 ml) UD IH PRN (12:01)
--- NOTE | 2017-09-29 12:07 | CP.PCM.HP ---
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 Patient reports a history of similar occurring over the last 15 years however stated approximately one month ago; symptoms had recurred and was seen here at [facility] on [place]; subsequently DC'd from ED w/ ZPack and minimal resolution of symptoms. He reports an on and off productive cough with yellow- brown sputum which he reports is blood tinged at times. Upon further evaluation he states "there's something in my chest" and localizes majority of his symptoms to the chest area, and further describes the sensation as a tightness which occurs in his chest. He does report associated runny nose, and wheezing however he denies any ear pain or sore throat. Also reports associated fatigue, body aches, myalgias, and joint pain. Upon ROS pt complains of burning type chest pain; reports lying down after eating. He denies any hot or spicy foods, and any caffeine use however does report nausea w/o vomit, and decreased appetite. He has had a prior CT of the chest performed here which was read w/ a 3mm lung nodule; no follow up was advised at the time. Patient does report seeing a distribution systems superintendent out patient and had a PFT performed 07/24, denies any findings from PFT and denies any prior diagnosis of COPD/Emphysema/Asthma. Remainder of 12 system ROS is otherwise negative PMD: [facility] (Dr. 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 FamHx: Not significant for cardio/pulmonary diseases Home Rx: Almlodipine 10QD, Lisinopril 10QD, Indomethacin 50 TID, Ventolin Inhaler PRN In ED: VSS CBC wnl CMP wnl EKG - Sinus bradycardia; no ST/T wave abnormalities CXR - NAC Given Breathing treatments x2 Toradol 30 x1 Solumedrol 125 x1 Present on Admission - Present on Admission Any Indicators Present on Admission: No Review of Systems - Review of Systems All systems: reviewed and no additional remarkable complaints except Review of Systems: As per HPI Past Patient History - Infectious Disease Hx of Infectious Diseases: None - Past Social History Smoking Status: Former Smoker - CARDIAC Hx Cardiac Disorders: Yes Hx Hypertension: Yes - PULMONARY Hx Respiratory Disorders: Yes Hx Bronchitis: Yes - NEUROLOGICAL Hx Neurological Disorder: No - HEENT Hx HEENT Problems: No - RENAL Hx Chronic Kidney Disease: No - ENDOCRINE/METABOLIC Hx Endocrine Disorders: No - HEMATOLOGICAL/ONCOLOGICAL Hx Blood Disorders: No - INTEGUMENTARY Hx Dermatological Problems: Yes Other/Comment: TINEA - MUSCULOSKELETAL/RHEUMATOLOGICAL Hx Musculoskeletal Disorders: No - GASTROINTESTINAL Hx Gastrointestinal Disorders: No - GENITOURINARY/GYNECOLOGICAL Hx Genitourinary Disorders: No - PSYCHIATRIC Hx Psychophysiologic Disorder: No Hx Substance Use: No - SURGICAL HISTORY Hx Eye Surgery: Yes (right eye socket repair) Hx Orthopedic Surgery: Yes (R KNEE) - ANESTHESIA Hx Anesthesia: Yes Hx Anesthesia Reactions: No Hx Malignant Hyperthermia: No Meds Allergies/Adverse Reactions: Allergies Allergy/AdvReac Type Severity Reaction Status Date / Time No Known Allergies Allergy Verified 09/29/17 11:47 Physical Exam - Constitutional Appears: Well, Non-toxic, No Acute Distress - Head Exam Head Exam: ATRAUMATIC, NORMOCEPHALIC - Eye Exam Eye Exam: EOMI, Normal appearance, PERRL. absent: Scleral icterus - ENT Exam ENT Exam: Mucous Membranes Moist - Respiratory Exam Respiratory Exam: Clear to Auscultation Bilateral, NORMAL BREATHING PATTERN. absent: Rales, Rhonchi, Wheezes, Respiratory Distress - Cardiovascular Exam Cardiovascular Exam: RRR, +S1, +S2. absent: Systolic Murmur - GI/Abdominal Exam GI & Abdominal Exam: Normal Bowel Sounds, Soft. absent: Tenderness - Extremities Exam Extremities exam: Positive for: pedal pulses present (2+ TP/DP BL ). Negative for: pedal edema - Back Exam Back exam: absent: CVA tenderness (L), CVA tenderness (R) - Neurological Exam Neurological exam: Alert, CN II-XII Intact, Oriented x3 Additional comments: UE/ LE Gross strength 5/5 4/5 Clinical Quality Assurance Specialist strength BL - Psychiatric Exam Psychiatric exam: Normal Affect, Normal Mood - Skin Skin Exam: Dry, Intact, Warm Results - Vital Signs Recent Vital Signs: Last Vital Signs Temp 97.8 F 09/29/17 06:23 Pulse 86 09/29/17 08:15 Resp 18 09/29/17 08:15 BP 123/92 H 09/29/17 08:15 Pulse Ox 97 09/29/17 08:15 - Labs Result Diagrams: 09/29/17 08:46 09/29/17 08:46 Assessment & Plan - Assessment and Plan (Free Text) Assessment: 51M Male w/ hx of HTN, presented [place] [facility] [place] CC of chest discomfort, w/ associated cough, and Nausea. Chest Discomfort - ACS r/o - First troponin negative; Continue trending Q6H - EKG in ED showed NSR - Echo pending - Lipid panel pending - TSH level pending - A1C pending - ASA81 QD - Telemetry - Cardiology Consulted Cough Suspect viral bronchitis vs Obstructive Airway Disease Exacerbation vs Viral Infection - Started IVF NS 100/hr - Started Robitussin 100mg Q4 PRN Cough - Duoneb Q2H PRN GERD Pt. w/ complains of Nausea and Mediastinal burning - HOB 30degress - Lactobacillus - Started Protonix 40 IVP Hx HTN Continue monitoring Pressures inpatient; - C/w Amlodipine 10mg QD - C/w Lisinopril 10mg QD DVT/GI PPX: SCDs/ Protonix 40 IVP Dispo: Patient to be obs on tele for ACS r/o and workup of chest discomfort Patient seen and examined, case discussed w/ attending physician Dr. 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 [employer] - Pager [phone] - Date & Time Date: 09/29/17 Time: 14:02 <Hillary Reid R - Last Filed: 09/30/17 07:42> Results - Vital Signs Recent Vital Signs: Last Vital Signs Temp 97.8 F 09/29/17 18:00 Pulse 73 09/30/17 06:00 Resp 18 09/29/17 18:00 BP 124/87 09/29/17 18:00 Pulse Ox 98 09/29/17 18:00 - Labs Result Diagrams: 09/30/17 06:00 09/30/17 06:00 Labs: Laboratory Results - last 24 hr 09/29/17 09/29/17 09/29/17 16:32 16:32 16:32 WBC RBC Hgb Hct MCV MCH MCHC RDW Plt Count MPV Gran % Lymph % (Auto) Atkinson % (Auto) Eos % (Auto) Baso % (Auto) Gran # Lymph # (Auto) Atkinson # (Auto) Eos # (Auto) Baso # (Auto) Sodium Potassium Chloride Carbon Dioxide Anion Gap BUN Creatinine Est GFR ( Amer) Est GFR (Non-Af Amer) Random Glucose Hemoglobin A1c 5.9 Calcium Total Bilirubin AST ALT Alkaline Phosphatase Troponin I < 0.01 Total Protein Albumin Globulin Albumin/Globulin Ratio Triglycerides 37 Cholesterol 176 LDL Cholesterol Direct 71 HDL Cholesterol 66 H Free T4 TSH 3rd Generation 0.21 L Urine Opiates Screen Urine Methadone Screen Ur Barbiturates Screen Ur Phencyclidine Scrn Ur Amphetamines Screen U Benzodiazepines Scrn U Oth Cocaine Metabols U Cannabinoids Screen 09/29/17 09/29/17 09/29/17 16:32 22:28 23:35 WBC RBC Hgb Hct MCV MCH MCHC RDW Plt Count MPV Gran % Lymph % (Auto) Atkinson % (Auto) Eos % (Auto) Baso % (Auto) Gran # Lymph # (Auto) Atkinson # (Auto) Eos # (Auto) Baso # (Auto) Sodium Potassium Chloride Carbon Dioxide Anion Gap BUN Creatinine Est GFR ( Amer) Est GFR (Non-Af Amer) Random Glucose Hemoglobin A1c Calcium Total Bilirubin AST ALT Alkaline Phosphatase Troponin I < 0.01 Total Protein Albumin Globulin Albumin/Globulin Ratio Triglycerides Cholesterol LDL Cholesterol Direct HDL Cholesterol Free T4 1.20 TSH 3rd Generation Urine Opiates Screen Negative Urine Methadone Screen Negative Ur Barbiturates Screen Negative Ur Phencyclidine Scrn Negative Ur Amphetamines Screen Negative U Benzodiazepines Scrn Negative U Oth Cocaine Metabols Negative U Cannabinoids Screen Negative 09/30/17 09/30/17 06:00 06:00 WBC 13.1 H D RBC 4.82 Hgb 13.2 L Hct 40.2 L MCV 83.4 MCH 27.4 MCHC 32.8 RDW 14.9 H Plt Count 198 MPV 9.5 Gran % 76.0 H Lymph % (Auto) 17.7 L Atkinson % (Auto) 6.0 Eos % (Auto) 0.2 L Baso % (Auto) 0.1 Gran # 9.95 H Lymph # (Auto) 2.3 Atkinson # (Auto) 0.8 H Eos # (Auto) 0.0 Baso # (Auto) 0.01 Sodium 141 Potassium 3.9 Chloride 106 Carbon Dioxide 27 Anion Gap 13 BUN 22 H Creatinine 1.2 Est GFR ( Amer) > 60 Est GFR (Non-Af Amer) > 60 Random Glucose 118 H Hemoglobin A1c Calcium 8.9 Total Bilirubin 0.6 AST 18 ALT 21 Alkaline Phosphatase 70 Troponin I Total Protein 6.8 Albumin 3.7 Globulin 3.1 Albumin/Globulin Ratio 1.2 Triglycerides Cholesterol LDL Cholesterol Direct HDL Cholesterol Free T4 TSH 3rd Generation Urine Opiates Screen Urine Methadone Screen Ur Barbiturates Screen Ur Phencyclidine Scrn Ur Amphetamines Screen U Benzodiazepines Scrn U Oth Cocaine Metabols U Cannabinoids Screen Attending/Attestation - Attestation I have personally seen and examined this patient.: Yes I have fully participated in the care of the patient.: Yes I have reviewed all pertinent clinical information: Yes Notes (Text): Patient seen and examined by me at 12:15PM with resident 09/29/17. Case including HPI, physical exam, and assessment and plan discussed with resident. Agree with above with following additions/corrections. Patient is a 51-year-old male with past medical history significant for hypertension and hay fever that presented to the emergency room with cough, nausea, weakness, and chest tightness. Patient states that this has been going on for some time now. He states for approximately the past 15 years he has had similar episodes and has been treated for bronchitis. Patient states that he was treated with a Z-Moy approximately one month ago. He states that symptoms did not resolve with this. He states for the past 2 days he has been feeling nauseous and having chest tightness. He states he has a decreased appetite. Patient states that the chest tightness was worse this morning which brought him into the emergency room. He states that he feels a burning in his chest that is worse at night. He states that he thinks he is congested in my chest. No radiation of the chest tightness. Chest tightness is constant. Patient with an intermittent cough with intermittent phlegm. He states that the cough is not bad. No fevers or chills. No shortness of breath. Patient states that he does have fatigue and body aches. No headaches or dizziness. No dysuria. No diarrhea or constipation. 12 point review of systems reviewed by me. Please see HPI. All other systems are negative. Family history: reviewed and not pertinent Physical exam: General: Awake and alert sitting up in bed in no acute distress HEENT: Normocephalic atraumatic. Pupils equal reactive. No scleral icterus. Oropharynx is pink and moist. No pharyngeal erythema or exudate appreciated. Neck is supple. Hearing grossly intact. Ears and nose externally unremarkable Cardiovascular: Normal rhythm. Normal S1, S2. No murmurs, rubs, or gallops appreciated Pulmonary: Normal respiratory effort. No rhonchi, rales or wheezing appreciated. Gastrointestinal: Soft, nondistended. nontender. Positive bowel sounds all 4 quadrants, no guarding. Musculoskeletal: Normal range of motion all extremities, no calf tenderness, no edema appreciated. Central nervous system: AAOx3. CN2-12 grossly intact. 5/5 muscle strength all extremities. Dermatologic: Skin warm and dry Assessment and plan: Patient is a 51-year-old male with past medical history significant for hypertension and hay fever that presented to the emergency room with cough, nausea, weakness, and chest tightness. 1. Chest tightness. Rule out ACS. Possible acid reflux. Follow up serial troponins. Follow up 2d echo. Started on ASA. Cardiology consulted, follow up recommendations. Chest CT ordered. Follow up TSH, HgbA1C, and lipid panel. Monitor on telemetry. Started on protonix 40mg IV daily. Patient did receive steroids in the emergency room. Patient with a long smoking history however he states he recently had PFTs done with his distribution systems superintendent which were negative for COPD. 2. Essential hypertension. Continue home norvasc and lisinopril 3. Cough. History of bronchitis. Patient is afebrile. No leukocytosis. Chest x- ray with no active disease. CT chest ordered. We'll hold off on any antibiotics for now. Robitussin when necessary. Nebulizer treatments as needed 4. GI/DVT prophylaxis. Protonix and SCDs with early ambulation Case was discussed in detail with the patient regarding current diagnosis and treatment plan.
[2017-09-29] MEDS ORDERED: guaiFENesin 100 mg/5 ml Syrup UD PO PRN (12:08)
[2017-09-29 12:10] VITALS: O2SAT 98
[2017-09-29] MEDS ORDERED: Sodium Chloride 0.9% 1,000 ML IV SCH (12:15)
[2017-09-29] MEDS ORDERED: Azithromycin 500MG/NS 250ml 500 MG/250 ML BAG IVPB SCH (12:15)
[2017-09-29] MEDS ORDERED: Albuterol 0.083% Inhal Sol (2.5 mg/3 mL) UD INH PRN (12:39)
[2017-09-29] MEDS ORDERED: Iohexol 350 MG/100 ML VIAL ONE (12:43)
--- NOTE | 2017-09-29 13:34 | CT ---
Date of service: 09/29/2017 PROCEDURE: CT Chest with contrast HISTORY: Chest Pain COMPARISON: None available. TECHNIQUE: Contiguous axial images were obtained through the chest with intravenous contrast enhancement. Sagittal and coronal reconstructions were performed. IV contrast: 100 cc of Omni 350 Radiation dose (DLP): 386 mGy-cm. This CT exam was performed using one or more of the following dose reduction techniques: Automated exposure control, adjustment of the mA and/or kV according to patient size, and/or use of iterative reconstruction technique. FINDINGS: LUNGS: Clear lungs. Visualized airway clear. MEDIASTINUM: Unremarkable thoracic aorta. No aneurysm or dissection. Normal sized heart. Main pulmonary artery unremarkable. No vascular congestion. No lymphadenopathy. PLEURA: No pleural fluid. No pneumothorax. BONES: No fracture. No destructive lesion. UPPER ABDOMEN: Grossly unremarkable. OTHER FINDINGS: None. IMPRESSION: No evidence of dissection or pulmonary embolus. The lungs are clear
[2017-09-29] MEDS ORDERED: Pneumococcal 23-Valent Vaccine IM ONE (13:41)
[2017-09-29 16:51] LABS: HDL CHOLESTEROL 66 mg/dL (29-60)
[2017-09-29 17:02] LABS: LDL CHOLESTEROL 71 mg/dL (0-129)
[2017-09-29 17:05] LABS: TROPONIN I < 0.01 ng/mL
[2017-09-29] MEDS ORDERED: guaiFENesin 600 mg ER Tab PO SCH (18:00)
[2017-09-29] MEDS ORDERED: Lactobacillus Acidophilus 500 MU Cap PO SCH (18:00)
--- NOTE | 2017-09-29 21:28 | CARD ---
APPROVED REPORT Date of service: 09/29/2017 EKG Measurement Heart [id number] <Conclusion> Sinus bradycardia Otherwise normal ECG
[2017-09-30 00:45] LABS: PHENCYCLIDINE, UR NEGATIVE (NEGATIVE)
[2017-09-30 00:59] LABS: BARBITURATES, UR NEGATIVE (NEGATIVE); BENZODIAZEPINES, UR NEGATIVE (NEGATIVE); OPIATES, UR NEGATIVE (NEGATIVE)
[2017-09-30 06:34] LABS: BASO # 0.01 K/mm3 (0.0-2.0); BASO % 0.1 % (0.0-3.0); EOS % 0.2 % (1.5-5.0); GRAN # 9.95 (1.4-6.5); HEMOGLOBIN 13.2 g/dL (14.0-18.0); LYMPH # 2.3 (1.2-3.4); LYMPH % 17.7 % (22.0-35.0); MEAN CELL VOLUME 83.4 fl (80.0-105.0); MEAN CORPUSCULAR HEMOGLOBIN 27.4 pg (25.0-35.0); MEAN CORPUSCULAR HGB CONC 32.8 g/dl (31.0-37.0); MEAN PLATELET VOLUME 9.5 fl (7.0-11.0); MONO # 0.8 (0.1-0.6); RBC 4.82 10^6/uL (3.5-6.1); RED CELL DISTRIBUTION WIDTH 14.9 % (11.5-14.5); WHITE BLOOD COUNT 13.1 10^3/ul (4.5-11.0)
[2017-09-30 07:01] LABS: ALB/GLOB RATIO 1.2 (1.1-1.8); ALBUMIN 3.7 g/dL (3.0-4.8); ALT/SGPT 21 U/L (7-56); AST/SGOT 18 U/L (17-59); BLOOD UREA NITROGEN 22 mg/dL (7-21); CALCIUM 8.9 mg/dL (8.4-10.5); GFR NON-AFRICAN AMERICAN > 60
[2017-09-30 08:15] VITALS: RESP 20
--- NOTE | 2017-09-30 11:43 | CON ---
Copied To: Craig Murguia MD Attending MD: Craig Murguia MD DATE: 09/30/2017 CARDIOLOGY CONSULT REASON FOR CONSULTATION: Shortness of breath. HISTORY OF PRESENT ILLNESS: The patient is a 51-year-old male who has history of hypertension, former heavy smoker, who smoked 2 packs per day, quit 5 years ago and a former EtOH abuser, who quit around the same time. He was diagnosed a few years ago at [facility] with a leaky valve, but required no cardiac intervention at that time. The patient presented because of shortness of breath and worsening cough. The patient has a productive cough of yellowish brown sputum. The patient denies any fever or chills. SOCIAL HISTORY: The patient is a former smoker, former EtOH abuser. MEDICATIONS: Albuterol inhaler every 2 hours, aspirin 81 mg once a day, Norvasc 10 mg once a day, Protonix 40 mg intravenously once a day, Zestril 10 mg once a day, Robitussin 100 mg p.o. every 4 hours p.r.n. REVIEW OF SYSTEMS: No nausea or vomiting. No dizziness or syncope. No retrosternal chest pain. PHYSICAL EXAMINATION: GENERAL: The patient is a middle-aged male, who does not appear to be in any distress. VITAL SIGNS: Blood pressure 128/86, heart rate 88, temperature 97.8, respirations 20. HEENT: Normocephalic. CHEST: Minimal rhonchi. HEART: S1 and S2 regular. ABDOMEN: Soft. EXTREMITIES: No edema. LABORATORY DATA: Urine drug screen is negative. SMA-7 is within normal limits except for glucose of 118 and BUN of 22. Three sets of troponins are negative. TSH level is 0.1, which is below normal. EKG revealed sinus bradycardia at rate of 55. Chest CT angio revealed no evidence of dissection or pulmonary embolus. Chest x-ray revealed prominent central vasculature. No cardiomegaly. ASSESSMENT: 1. Consider upper respiratory tract infection. 2. Hypertension. 3. Mild sinus bradycardia. 4. Rule out hyperthyroidism. 6. History of leaky valve according to the patient. RECOMMENDATIONS: Continue current aspirin, albuterol, Norvasc and Zestril. I will follow an echocardiography to be performed today. Craig Murguia MD [facility] # [id number]
--- NOTE | 2017-09-30 15:57 | CARD ---
APPROVED REPORT Date of service: 09/30/2017 EXAM: Two-dimensional and M-mode echocardiogram with Doppler and color Doppler. INDICATION Chest Pain 2D DIMENSIONS Left Atrium (2D)4.0 (1.6-4.0cm)IVSd1.2 (0.7-1.1cm) LVDd5.5 (3.9-5.9cm)PWd1.0 (0.7-1.1cm) LVDs3.8 (2.5-4.0cm)FS (%) 31.5 % LVEF (%)58.7 (>50%) M-Mode DIMENSIONS Aortic Root2.10 (2.2-3.7cm)Aortic Cusp Exc.1.80 (1.5-2.0cm) Aortic Valve AoV Peak Ysssdppd302.0cm/Josesito Peak GR.9mmHg Mitral Valve MV E Jzumugvx90.6cm/sMV A Bdfokujf74.7cm/sE/A ratio1.3 TDI E/Lateral E'0.0E/Medial E'0.0 Tricuspid Valve TR Peak [id number]/sRAP [id number] Peak Gr.10mmHg [id number] LEFT VENTRICLE The left ventricle is normal size. There is normal left ventricular wall thickness. The left ventricular function is normal. The left ventricular ejection fraction is within the normal range. There is normal LV segmental wall motion. The left ventricular diastolic function is normal. RIGHT VENTRICLE The right ventricle is normal size. There is normal right ventricular wall thickness. The right ventricular systolic function is normal. ATRIA The left atrium is borderline dilated. The right atrium size is normal. AORTIC VALVE The aortic valve is normal in structure. No aortic regurgitation is present. There is no aortic valvular stenosis. MITRAL VALVE The mitral valve is normal in structure. Mitral regurgitation is trace. There is no mitral valve stenosis. TRICUSPID VALVE The tricuspid valve is normal in structure. There is trace tricuspid regurgitation. PULMONIC VALVE The pulmonary valve is normal in structure. There is no pulmonic valvular regurgitation. GREAT VESSELS The aortic root is normal in size. The IVC is normal in size and collapses >50% with inspiration. PERICARDIAL EFFUSION There is no pericardial effusion. <Conclusion> The left ventricle is normal size. There is normal left ventricular wall thickness. The left ventricular function is normal. The left ventricular ejection fraction is within the normal range. There is normal LV segmental wall motion. The left ventricular diastolic function is normal.
[2017-09-30 16:20] VITALS: BP 116/84; PULSE 68; TEMP 98.8
--- NOTE | 2017-09-30 17:17 | CP.PCM.DIS ---
Provider - Provider Date of Admission: 09/29/17 11:10 Attending physician: Hillary Reid DO Primary care physician: Monty Jean-Baptiste MD Consults: Cardiology - Craig Browning Time Spent in preparation of Discharge (in minutes): 40 Diagnosis - Discharge Diagnosis (1) Viral bronchitis Status: Acute Priority: High (2) HTN (hypertension) Status: Chronic Priority: Medium (3) ACS (acute coronary syndrome) Status: Ruled-out Priority: High Hospital Course - Lab Results Lab Results: Most Recent Lab Values WBC 13.1 10^3/ul (4.5-11.0) H D 09/30/17 06:00 RBC 4.82 10^6/uL (3.5-6.1) 09/30/17 06:00 Hgb 13.2 g/dL (14.0-18.0) L 09/30/17 06:00 Hct 40.2 % (42.0-52.0) L 09/30/17 06:00 MCV 83.4 fl (80.0-105.0) 09/30/17 06:00 MCH 27.4 pg (25.0-35.0) 09/30/17 06:00 MCHC 32.8 g/dl (31.0-37.0) 09/30/17 06:00 RDW 14.9 % (11.5-14.5) H 09/30/17 06:00 Plt Count 198 10^3/uL (120.0-450.0) 09/30/17 06:00 MPV 9.5 fl (7.0-11.0) 09/30/17 06:00 Gran % 76.0 % (50.0-68.0) H 09/30/17 06:00 Lymph % (Auto) 17.7 % (22.0-35.0) L 09/30/17 06:00 Haakon % (Auto) 6.0 % (1.0-6.0) 09/30/17 06:00 Eos % (Auto) 0.2 % (1.5-5.0) L 09/30/17 06:00 Baso % (Auto) 0.1 % (0.0-3.0) 09/30/17 06:00 Gran # 9.95 (1.4-6.5) H 09/30/17 06:00 Lymph # (Auto) 2.3 (1.2-3.4) 09/30/17 06:00 Haakon # (Auto) 0.8 (0.1-0.6) H 09/30/17 06:00 Eos # (Auto) 0.0 (0.0-0.7) 09/30/17 06:00 Baso # (Auto) 0.01 K/mm3 (0.0-2.0) 09/30/17 06:00 Sodium 141 mmol/L (132-148) 09/30/17 06:00 Potassium 3.9 mmol/L (3.6-5.0) 09/30/17 06:00 Chloride 106 mmol/L (98-107) 09/30/17 06:00 Carbon Dioxide 27 mmol/L (21-33) 09/30/17 06:00 Anion Gap 13 (10-20) 09/30/17 06:00 BUN 22 mg/dL (7-21) H 09/30/17 06:00 Creatinine 1.2 mg/dl (0.8-1.5) 09/30/17 06:00 Est GFR ( Amer) > 60 09/30/17 06:00 Est GFR (Non-Af Amer) > 60 09/30/17 06:00 Random Glucose 118 mg/dL (70-110) H 09/30/17 06:00 Hemoglobin A1c 5.9 % (4.2-6.5) 09/29/17 16:32 Calcium 8.9 mg/dL (8.4-10.5) 09/30/17 06:00 Magnesium 2.1 mg/dL (1.7-2.2) 09/29/17 08:46 Total Bilirubin 0.6 mg/dL (0.2-1.3) 09/30/17 06:00 AST 18 U/L (17-59) 09/30/17 06:00 ALT 21 U/L (7-56) 09/30/17 06:00 Alkaline Phosphatase 70 U/L (38-126) 09/30/17 06:00 Troponin I < 0.01 ng/mL 09/29/17 23:35 Total Protein 6.8 g/dL (5.8-8.3) 09/30/17 06:00 Albumin 3.7 g/dL (3.0-4.8) 09/30/17 06:00 Globulin 3.1 gm/dL 09/30/17 06:00 Albumin/Globulin Ratio 1.2 (1.1-1.8) 09/30/17 06:00 Triglycerides 37 mg/dL (35-160) 09/29/17 16:32 Cholesterol 176 mg/dL (130-200) 09/29/17 16:32 LDL Cholesterol Direct 71 mg/dL (0-129) 09/29/17 16:32 HDL Cholesterol 66 mg/dL (29-60) H 09/29/17 16:32 Free T4 1.20 ng/dL (0.78-2.19) 09/29/17 16:32 TSH 3rd Generation 0.21 mIU/mL (0.46-4.68) L 09/29/17 16:32 Urine Color Yellow (YELLOW) 09/29/17 07:00 Urine Appearance Clear (CLEAR) 09/29/17 07:00 Urine pH 6.5 (4.7-8.0) 09/29/17 07:00 Ur Specific [place] 1.010 (1.005-1.035) 09/29/17 07:00 Urine Protein Negative mg/dL (<30 mg/dL) 09/29/17 07:00 Urine Glucose (UA) Negative mg/dL (NEGATIVE) 09/29/17 07:00 Urine Ketones Negative mg/dL (NEGATIVE) 09/29/17 07:00 Urine Blood Negative (NEGATIVE) 09/29/17 07:00 Urine Nitrate Negative (NEGATIVE) 09/29/17 07:00 Urine Bilirubin Negative (NEGATIVE) 09/29/17 07:00 Urine Urobilinogen 0.2 E.U./dL (<1 E.U./dL) 09/29/17 07:00 Ur Leukocyte Esterase Negative Cornelius/uL (NEGATIVE) 09/29/17 07:00 Urine Opiates Screen Negative (NEGATIVE) 09/29/17 22:28 Urine Methadone Screen Negative (NEGATIVE) 09/29/17 22:28 Ur Barbiturates Screen Negative (NEGATIVE) 09/29/17 22:28 Ur Phencyclidine Scrn Negative (NEGATIVE) 09/29/17 22:28 Ur Amphetamines Screen Negative (NEGATIVE) 09/29/17 22:28 U Benzodiazepines Scrn Negative (NEGATIVE) 09/29/17 22:28 U Oth Cocaine Metabols Negative (NEGATIVE) 09/29/17 22:28 U Cannabinoids Screen Negative (NEGATIVE) 09/29/17 22:28 - Hospital Course Hospital Course: Andrea Reid DO PGY1 - Internal Medicine Division Field Inspector - Hospital Progress Note 51M w/ PMH HTN, and Chronic leg pain, presented to [facility] ED On 09/29 w/ CC of Chest discomfort. Patient also had associated nausea and cough. Pt. stated that the symptoms have been going on for a couple of week, and was recently seen at [facility] ED on 08/30 and discharged w/ Zpack; however he denied any improvement of symptoms. Patient's complaints of chest discomfort were further explored and patient was found to be complaining of chest tightness/ burning sensation in chest. Troponins, Chest Xray, and EKG showed no acute ischemic changes. Patient was given nebulizer treatments and protonix. Prior imaging studies showed a 3mm lung nodule and repeat CT showed no evidence of worsening or recurrence of nodule. TSH levels returned low however T4 was within normal limits. Echo revealed a 58.7% EF w/o any diastolic dysfunction. UA and Utox were negative for any illicit substances. Electrolytes were wnl. Pt. was seen and examined this AM at bedside prior to discharge. He reported no acute events overnight. He did report that he felt clinically much improved from time of admission. Denied any chest tightness, cough, or SOB at time of evaluation. Patient was given the following instructions on discharge: You were admitted for Chest Tightness and acid-reflux like symtpoms Please follow up with your Primary Care Doctor at [facility] within 3-5 days of discharge Please also follow up with Cardiology (Dr. Gutierrez) within 7-10 days of discharge. Please take the following medications: Amlodipine 10mg Daily Lisinopril 10mg Daily Protonix 40mg at bed time Please avoid lying down after meals, and avoid eating late at night Please avoid foods which irritate your stomach such as spicy foods, caffeine, alcohol. If symptoms return please visit your nearest Emergency Room Department. Patient is medically optimized for discharge at this time - Date & Time of H&P Date of H&P: 09/29/17 Time of H&P: 11:57 Discharge Exam - Head Exam Head Exam: ATRAUMATIC, NORMOCEPHALIC - Eye Exam Eye Exam: EOMI, PERRL. absent: Scleral icterus - ENT Exam ENT Exam: Mucous Membranes Moist - Respiratory Exam Respiratory Exam: Clear to PA & Lateral, NORMAL BREATHING PATTERN, UNREMARKABLE. absent: Rales, Rhonchi, Wheezes - Cardiovascular Exam Cardiovascular Exam: REGULAR RHYTHM, RRR, +S1, +S2. absent: Systolic Murmur - GI/Abdominal Exam GI & Abdominal Exam: Normal Bowel Sounds, Unremarkable. absent: Tenderness - Extremities Exam Extremities exam: pedal pulses present (2+ TP/DP BL ) Additional comments: No pedal edema - Back Exam Back exam: absent: CVA tenderness (L), CVA tenderness (R) - Neurological Exam Neurological exam: Alert, CN II-XII Intact, Oriented x3 - Psychiatric Exam Psychiatric exam: Normal Affect, Normal Mood - Skin Skin Exam: Dry, Intact, Normal Color, Warm Discharge Plan - Discharge Medications Prescriptions: amLODIPine [Norvasc] 10 mg PO DAILY #14 tab Lisinopril [Zestril] 10 mg PO DAILY #14 tab Pantoprazole [Protonix EC Tab] 40 mg PO ACB #14 ect - Follow Up Plan Condition: STABLE Disposition: HOME/ ROUTINE Patient education suggested?: Yes Instructions: Chronic Bronchitis (DC) Additional Instructions: You were admitted for Chest Tightness and acid-reflux like symtpoms Please follow up with your Primary Care Doctor at [facility] within 3-5 days of discharge Please also follow up with Cardiology (Dr. Gutierrez) within 7-10 days of discharge. Please take the following medications: Amlodipine 10mg Daily Lisinopril 10mg Daily Protonix 40mg at bed time Please avoid lying down after meals, and avoid eating late at night Please avoid foods which irritate your stomach such as spicy foods, caffeine, alcohol. If symptoms return please visit your nearest Emergency Room Department. Referrals: Monty Jean-Baptiste MD [Primary Care Provider] - Craig Murguia MD [Staff Provider] -
[2017-10-01] MEDS ORDERED: Pantoprazole 40 mg EC Tab PO SCH (07:30)
== END 2017-09-30 17:25 | disposition home or self-care (01) ==
LOC: ED 06:14 → ERH 11:10 → 5RNO 12:11 → 3RSO 16:38
PROVIDERS: ADMIT Hospitalist; ATTEND Hospitalist
DX: J20.8 Acute bronchitis due to other specified organisms (principal); I24.9 Acute ischemic heart disease, unspecified; I10 Essential (primary) hypertension; K21.9 Gastro-esophageal reflux disease without esophagitis; R00.1 Bradycardia, unspecified; Z87.891 Personal history of nicotine dependence
CPT/HCPCS: 36415; 71046; 71260; 80053; 80061; 80324; 80345; 80346; 80349; 80353; 80358; 80361; 81003; 83036; 83735; 83992; 84439; 84443; 84484; 85025; 93005; 93306; 96374; 96375; 96376; 97116; 97161; 99284; C9113; G0378; G8978; G8979; G8980; J1885; J2930; Q9967

== ENCOUNTER 2017-10-25 21:04 | Emergency (ER) | payer OTHER ==
[2017-10-25 21:04] VITALS: BMI 27.3
[2017-10-25 21:24] VITALS: TEMP 98; O2SAT 98
[2017-10-25] MEDS ORDERED: Sodium Chloride 0.9% 500 ML IV STA (21:27)
[2017-10-25] MEDS ORDERED: Sodium Chloride 0.9% 1,000 ML IV STA (21:43)
--- NOTE | 2017-10-25 21:47 | ED PDOC ---
Arrival/HPI - General Chief Complaint: GI Problem Time Seen by Provider: 10/25/17 21:05 Historian: Patient - History of Present Illness Narrative History of Present Illness (Text): 10/25/17 21:46 51-year-old male presents today with dizziness weakness and near syncope. Patient states he's been having 4 days of diarrhea. Patient states he's been having of 5 episodes of diarrhea daily for the past 4 days. He is complaining of nausea no vomiting. He denies fevers or chills. He is complaining of generalized fatigue and feeling dizzy. He is complaining of a burning sensation in his chest. He denies back pain. Denies any urinary symptoms. States he's been taking clindamycin for a infection of his lip. No other complaints. Past Medical History - Provider Review Nursing Documentation Reviewed: Yes - Travel History Have you recently traveled outside [place] w/in the past 3 mons?: No - Past History Past History: No Previous - Infectious Disease Hx of Infectious Diseases: None - Cardiac Hx Cardiac Disorders: Yes Hx Hypertension: Yes - Pulmonary Hx Respiratory Disorders: Yes Hx Bronchitis: Yes - Neurological Hx Neurological Disorder: No - HEENT Hx HEENT Disorder: No - Renal Hx Renal Disorder: No - Endocrine/Metabolic Hx Endocrine Disorders: No - Hematological/Oncological Hx Blood Disorders: No - Integumentary Hx Dermatological Disorder: Yes Other/Comment: TINEA, SKIN INFECTION OF LIP - Musculoskeletal/Rheumatological Hx Musculoskeletal Disorders: No - Gastrointestinal Hx Gastrointestinal Disorders: No - Genitourinary/Gynecological Hx Genitourinary Disorders: No - Psychiatric Hx Psychophysiologic Disorder: No Hx Substance Use: No - Surgical History Hx Eye Surgery: Yes Hx Orthopedic Surgery: Yes (R KNEE) - Anesthesia Hx Anesthesia: Yes Hx Anesthesia Reactions: No Hx Malignant Hyperthermia: No Family/Social History - Physician Review Nursing Documentation Reviewed: Yes Family/Social History: Unknown Family HX Smoking Status: Former Smoker Hx Alcohol Use: No Hx Substance Use: No Hx Substance Use Treatment: No Allergies/Home Meds Allergies/Adverse Reactions: Allergies No Known Allergies Allergy (Verified 10/25/17 21:06) Review of Systems - Review of Systems Constitutional: Fatigue. absent: Fevers Respiratory: absent: SOB, Cough Cardiovascular: Chest Pain. absent: Palpitations Gastrointestinal: Diarrhea. absent: Abdominal Pain, Nausea, Vomiting, Hematochezia, Hematemesis Genitourinary Male: absent: Dysuria, Frequency, Hematuria Musculoskeletal: absent: Arthralgias, Back Pain, Neck Pain Skin: absent: Rash, Pruritis Neurological: Dizziness. absent: Headache Psychiatric: absent: Anxiety, Depression Physical Exam Vital Signs Reviewed: Yes Vital Signs Temp Pulse Resp BP Pulse Ox 10/25/17 22:54 61 18 121/63 98 10/25/17 21:08 98.0 F 70 16 128/94 H 98 Temperature: Afebrile Blood Pressure: Normal Pulse: Regular Respiratory Rate: Normal Appearance: Positive for: Well-Appearing, Non-Toxic, Comfortable Pain Distress: None Mental Status: Positive for: Alert and Oriented X 3 - Systems Exam Head: Present: Atraumatic Extroacular Muscles: Present: EOMI Mouth: Present: Moist Mucous Membranes Neck: Present: Normal Range of Motion Respiratory/Chest: Present: Clear to Auscultation, Good Air Exchange. No: Respiratory Distress, Accessory Muscle Use Cardiovascular: Present: Regular Rate and Rhythm, Normal S1, S2. No: Murmurs Abdomen: No: Tenderness, Distention, Peritoneal Signs, Rebound, Guarding Back: Present: Normal Inspection Upper Extremity: Present: Normal ROM Lower Extremity: Present: Normal ROM Neurological: Present: GCS=15, Speech Normal Skin: Present: Warm, Dry, Normal Color Psychiatric: Present: Alert, Oriented x 3 Medical Decision Making ED Course and Treatment: 10/25/17 21:50 51yr old male with hx of htn, c/o generalized weakness, dizziness, near syncope with multiple episodes of diarrhea. vitals stable. cbc WNL cmp WNL trop WNL EKG normal sinus rhythm at 65 bpm normal axis normal intervals no ST elevations ua WNL cxr WNL head CTFINDINGS: Brain: Normal. No hemorrhage. No significant white matter disease. No edema. Ventricles: Normal. No ventriculomegaly. Bones/joints: Normal. No acute fracture. Sinuses: Normal as visualized. No acute sinusitis. Mastoid air cells: Normal as visualized. No mastoid effusion. Soft tissues: Normal. IMPRESSION: No acute findings. Patient has been advised to not leave the emergency room but has decided to go AGAINST MEDICAL ADVICE. The patient possesses capacity to make decisions and has voiced understanding to all my warnings of potential worsening of the condition for which medical care was sought. I have discussed all known and potential risks and consequences to the patient leaving AGAINST MEDICAL ADVICE. Patient is leaving against medical advise. AMA form signed. witness by KIKA RAVI. all aspects of this case were discussed the attending of record. Impression: Dizziness, chest pain, diarrhea RETURN IF YOU WISH TO CONTINUE YOUR CARE INCREASE FLUIDS TAKE PROBIOTICS FOLLOW UP WITH THE PRIMARY CARE PHYSICIAN WITHIN THE NEXT 2 DAYS FOLLOW UP WITH THE GI SPECIALIST WITHIN THE NEXT 2 DAYS. RETURN IMMEDIATELY IF ANY CONCERNING SYMPTOMS DEVELOP. - Lab Interpretations Lab Results: 10/25/17 21:30 10/25/17 21:30 Lab Results 10/25/17 21:55: Urine Color Light yellow, Urine Appearance Clear, Urine pH 6.0, Ur Specific [place] 1.020, Urine Protein Negative, Urine Glucose (UA) Negative, Urine Ketones Negative, Urine Blood Negative, Urine Nitrate Negative, Urine Bilirubin Negative, Urine Urobilinogen 0.2, Ur Leukocyte Esterase Negative 10/25/17 21:30: WBC 7.2, RBC 5.08, Hgb 14.2, Hct 43.3, MCV 85.2, MCH 28.0, MCHC 32.8, RDW 15.3 H, Plt Count 203, MPV 9.4, Gran % 49.9 L, Lymph % (Auto) 41.3 H, Carter % (Auto) 7.0 H, Eos % (Auto) 1.4 L, Baso % (Auto) 0.4, Gran # 3.61, Lymph # (Auto) 3.0, Carter # (Auto) 0.5, Eos # (Auto) 0.1, Baso # (Auto) 0.03 10/25/17 21:30: Sodium 137, Potassium 4.0, Chloride 105, Carbon Dioxide 25, Anion Gap 11, BUN 15, Creatinine 1.0, Est GFR ( Amer) > 60, Est GFR (Non- Af Amer) > 60, Random Glucose 92, Calcium 8.2 L, Total Bilirubin 0.7, AST 36, ALT 17, Alkaline Phosphatase 71, Lactate Dehydrogenase 449, Total Creatine Kinase 49, Troponin I < 0.01, Total Protein 6.8, Albumin 3.7, Globulin 3.1, Albumin/Globulin Ratio 1.2, Lipase 117 - RAD Interpretation Radiology Orders: 10/25/17 21:43 HEAD W/O CONTRAST [CT] Stat 10/25/17 21:50 CHEST PORTABLE [RAD] Stat - Medication Orders Current Medication Orders: Discontinued Medications Sodium Chloride (Sodium Chloride 0.9%) 1,000 mls @ 999 mls/hr IV .Q1H1M STA Stop: 10/25/17 22:43 Last Admin: 10/25/17 21:46 Dose: 999 mls/hr eMAR Start Stop Document 10/25/17 21:46 GMD (Rec: 10/25/17 21:47 GMD [id number]) Intravenous Solution Start Date 10/25/17 Start Time 21:47 End Date 10/25/17 End time 22:48 Total Infusion Time 61 Disposition/Present on Arrival - Present on Arrival Any Indicators Present on Arrival: No History of DVT/PE: No History of Uncontrolled Diabetes: No Urinary Catheter: No History of Decub. Ulcer: No History Surgical Site Infection Following: None - Disposition Have Diagnosis and Disposition been Completed?: Yes Diagnosis: Dizziness, Chest pain, Diarrhea Disposition: AGAINST MEDICAL ADVICE Disposition Time: 23:10 Patient Plan: Other (ama) Patient Problems: Current Active Problems Problem Status Onset Chest pain Acute Diarrhea Acute Dizziness Acute Condition: UNKNOWN Discharge Instructions (ExitCare): Chest Pain (ED), Dizziness, Nonvertigo, (DC) , Diarrhea and Traveler's Diarrhea, Adult (DC) Additional Instructions: RETURN IF YOU WISH TO CONTINUE YOUR CARE INCREASE FLUIDS TAKE PROBIOTICS FOLLOW UP WITH THE PRIMARY CARE PHYSICIAN WITHIN THE NEXT 2 DAYS FOLLOW UP WITH THE GI SPECIALIST WITHIN THE NEXT 2 DAYS. RETURN IMMEDIATELY IF ANY CONCERNING SYMPTOMS DEVELOP. Referrals: Madeline Powers MD [Medical Doctor] - Follow up with primary Amy Kamara MD [Medical Doctor] - Follow up with primary [employer] [facility] [Outside] - Follow up with primary Forms: [employer] ([place]), WORK NOTE
[2017-10-25 22:02] LABS: BASO # 0.03 K/mm3 (0.0-2.0); BASO % 0.4 % (0.0-3.0); EOS # 0.1 (0.0-0.7); EOS % 1.4 % (1.5-5.0); GRAN # 3.61 (1.4-6.5); GRAN % 49.9 % (50.0-68.0); HEMOGLOBIN 14.2 g/dL (14.0-18.0); LYMPH % 41.3 % (22.0-35.0); MEAN CELL VOLUME 85.2 fl (80.0-105.0); MEAN CORPUSCULAR HGB CONC 32.8 g/dl (31.0-37.0); MEAN PLATELET VOLUME 9.4 fl (7.0-11.0); MONO # 0.5 (0.1-0.6); RBC 5.08 10^6/uL (3.5-6.1); RED CELL DISTRIBUTION WIDTH 15.3 % (11.5-14.5); WHITE BLOOD COUNT 7.2 10^3/ul (4.5-11.0)
[2017-10-25 22:12] LABS: URINE APPEARANCE CLEAR (CLEAR); URINE BILIRUBIN NEGATIVE (NEGATIVE); URINE BLOOD NEGATIVE (NEGATIVE); URINE COLOR LIGHT YELLOW (YELLOW); URINE GLUCOSE (UA) NEGATIVE (NEGATIVE); URINE LEUKOCYTE ESTERASE NEGATIVE Leu/uL (NEGATIVE); URINE PROTEIN NEGATIVE mg/dL (<30 mg/dL); URINE UROBILINOGEN 0.2 E.U./dL (<1 E.U./dL)
[2017-10-25 22:23] LABS: ALB/GLOB RATIO 1.2 (1.1-1.8); ALBUMIN 3.7 g/dL (3.0-4.8); ALT/SGPT 17 U/L (7-56); AST/SGOT 36 U/L (17-59); BLOOD UREA NITROGEN 15 mg/dL (7-21); CALCIUM 8.2 mg/dL (8.4-10.5); GFR NON-AFRICAN AMERICAN > 60; LIPASE 117 U/L (23-300)
[2017-10-25 22:34] LABS: TROPONIN I < 0.01 ng/mL
[2017-10-25 22:54] VITALS: BP 121/63; PULSE 61; RESP 18
--- NOTE | 2017-10-26 09:49 | CT ---
Date of service: 10/25/2017 PROCEDURE: CT HEAD WITHOUT CONTRAST. HISTORY: dizziness COMPARISON: None available. TECHNIQUE: Axial computed tomography images were obtained through the head/brain without intravenous contrast. Radiation dose: Total exam DLP = 888 mGy-cm. This CT exam was performed using one or more of the following dose reduction techniques: Automated exposure control, adjustment of the mA and/or kV according to patient size, and/or use of iterative reconstruction technique. FINDINGS: HEMORRHAGE: No intracranial hemorrhage. BRAIN: No mass effect or edema. No atrophy or chronic microvascular ischemic changes. VENTRICLES: Unremarkable. No hydrocephalus. CALVARIUM: Unremarkable. PARANASAL SINUSES: Unremarkable as visualized. No significant inflammatory changes. MASTOID AIR CELLS: Unremarkable as visualized. No inflammatory changes. OTHER FINDINGS: None. IMPRESSION: No acute findings
--- NOTE | 2017-10-26 10:03 | RAD ---
Date of service: 10/25/2017 HISTORY: dizziness, cp COMPARISON: 09/29/2017 FINDINGS: LUNGS: No active pulmonary disease. PLEURA: No significant pleural effusion identified, no pneumothorax apparent. CARDIOVASCULAR: Normal. OSSEOUS STRUCTURES: No significant abnormalities. VISUALIZED UPPER ABDOMEN: Normal. OTHER FINDINGS: None. IMPRESSION: No active disease.
--- NOTE | 2017-10-26 12:11 | CARD ---
APPROVED REPORT Date of service: 10/25/2017 EKG Measurement Heart [id number] <Conclusion> Normal sinus rhythm Normal ECG
== END 2017-10-25 23:29 | disposition left against medical advice (07) ==
LOC: ED 21:04
DX: R42 Dizziness and giddiness (principal); R07.9 Chest pain, unspecified; R19.7 Diarrhea, unspecified; I10 Essential (primary) hypertension; Z87.891 Personal history of nicotine dependence
CPT/HCPCS: 70450; 71045; 80053; 81003; 82550; 83615; 83690; 84484; 85025; 87086; 93005; 96360; 99285; J7030

== ENCOUNTER 2018-01-08 13:05 | Emergency (ER) | payer OTHER ==
[2018-01-08 13:19] VITALS: RESP 18; TEMP 98; BMI 28.1
--- NOTE | 2018-01-08 15:08 | ED PDOC ---
Arrival/HPI - General Chief Complaint: Lower Extremity Problem/Injury Time Seen by Provider: 01/08/18 13:44 Historian: Patient - History of Present Illness Narrative History of Present Illness (Text): 01/08/18 15:13 52yr old male presents today with a 2 week history of pain to the right calf. pt states he noticed varicose veins in the posterior aspect of the lower leg. pt states symptoms havent improved over the past 2 weeks. pt denies trauma or injury. denies fever/chills. no medications have been taken for pain. pt states that the pain is worse with standing for long periods of time. pt denies numbness, weakness, tingling in the extremities. no other complaints. Past Medical History - Provider Review Nursing Documentation Reviewed: Yes - Travel History Have you recently traveled outside [place] w/in the past 3 mons?: No - Past History Past History: No Previous - Infectious Disease Hx of Infectious Diseases: None - Cardiac Hx Cardiac Disorders: Yes Hx Hypertension: Yes - Pulmonary Hx Respiratory Disorders: Yes Hx Bronchitis: Yes - Neurological Hx Neurological Disorder: No - HEENT Hx HEENT Disorder: No - Renal Hx Renal Disorder: No - Endocrine/Metabolic Hx Endocrine Disorders: No - Hematological/Oncological Hx Blood Disorders: No - Integumentary Other/Comment: TINEA - Musculoskeletal/Rheumatological Hx Musculoskeletal Disorders: No - Gastrointestinal Hx Gastrointestinal Disorders: No - Genitourinary/Gynecological Hx Genitourinary Disorders: No - Psychiatric Hx Psychophysiologic Disorder: No Hx Substance Use: No - Surgical History Hx Eye Surgery: Yes Hx Orthopedic Surgery: Yes (R KNEE) - Anesthesia Hx Anesthesia: Yes Hx Anesthesia Reactions: No Hx Malignant Hyperthermia: No Family/Social History - Physician Review Nursing Documentation Reviewed: Yes Family/Social History: Unknown Family HX Smoking Status: Former Smoker Hx Alcohol Use: No Hx Substance Use: No Hx Substance Use Treatment: No Allergies/Home Meds Allergies/Adverse Reactions: Allergies No Known Allergies Allergy (Verified 10/25/17 21:06) Review of Systems - Review of Systems Constitutional: absent: Fatigue, Fevers Respiratory: absent: SOB, Cough Cardiovascular: absent: Chest Pain, Palpitations Gastrointestinal: absent: Abdominal Pain, Nausea, Vomiting Genitourinary Male: absent: Dysuria Musculoskeletal: Arthralgias Skin: Other (varicose veins). absent: Rash, Pruritis Neurological: absent: Headache, Dizziness Psychiatric: absent: Anxiety, Depression Physical Exam Vital Signs Reviewed: Yes Vital Signs Temp Pulse Resp BP Pulse Ox 01/08/18 13:19 98 F 83 18 125/81 97 Temperature: Afebrile Blood Pressure: Normal Pulse: Regular Respiratory Rate: Normal Appearance: Positive for: Well-Appearing, Non-Toxic, Comfortable Pain Distress: None Mental Status: Positive for: Alert and Oriented X 3 - Systems Exam Head: Present: Atraumatic Mouth: Present: Moist Mucous Membranes Neck: Present: Normal Range of Motion Respiratory/Chest: Present: Clear to Auscultation, Good Air Exchange. No: Respiratory Distress, Accessory Muscle Use Cardiovascular: Present: Regular Rate and Rhythm, Normal S1, S2. No: Murmurs Upper Extremity: Present: Normal Inspection Lower Extremity: Present: CALF TENDERNESS (right calf; there are multiple varicose veins noted to proximal calf; no erythema, minimal tenderness. negative brewer test. no achilles tendon tenderness. full rom of knee without tenderness or swelling. ), NORMAL PULSES, Normal ROM, Tenderness, Neurovascularly Intact, Capillary Refill < 2 s. No: Edema, Swelling, Erythema, Deformity Neurological: Present: GCS=15, Speech Normal Skin: Present: Warm, Dry, Normal Color. No: Rashes Psychiatric: Present: Alert, Oriented x 3 Medical Decision Making ED Course and Treatment: 01/08/18 15:32 Patient is nontoxic well-appearing no distress with stable vital signs. Patient with a 2 week history of right calf pain. Venous duplex of the right lower extremity reveals no DVT Toradol given for pain Patient was advised to follow-up with the vascular surgeon/specialist within the next 2 days. He was advised immediate return if symptoms worsen persist or if new concerning symptoms develop. Patient was advised to take Motrin for pain. Patient was advised to return to the emergency room if symptoms worsen persist or if new concerning symptoms develop. He was advised that if he has persistent pain that he should return to the emergency room for repeat ultrasound Patient verbalizes understanding of discharge instructions and need for imme diate followup. all aspects of this case were discussed the attending of record. Impression: Leg pain, varicose veins motrin every 6 hours as needed for pain follow up with the vascular surgeon within the next 2 days Traivso wup with the PMD within the next 2 days. return if symptoms worsen, persist or if new symptoms develop. - RAD Interpretation Radiology Orders: 01/08/18 14:16 DUPLEX LOWER EXTRM VEIN RIGHT [US] Stat Disposition/Present on Arrival - Present on Arrival Any Indicators Present on Arrival: No History of DVT/PE: No History of Uncontrolled Diabetes: No Urinary Catheter: No History of Decub. Ulcer: No History Surgical Site Infection Following: None - Disposition Have Diagnosis and Disposition been Completed?: Yes Diagnosis: Leg pain, Varicose vein of leg Disposition: HOME/ ROUTINE Disposition Time: 14:45 Patient Plan: Discharge Patient Problems: Current Active Problems Problem Status Onset Leg pain Acute Varicose vein of leg Acute Condition: GOOD Discharge Instructions (ExitCare): Varicose Veins and Other Vein Disease in the Legs, Varicose Veins (DC) Additional Instructions: motrin every 6 hours as needed for pain follow up with the vascular surgeon within the next 2 days Follo wup with the PMD within the next 2 days. return if symptoms worsen, persist or if new symptoms develop. Prescriptions: Ibuprofen [Motrin] 600 mg PO Q6H PRN #20 tab PRN Reason: pain/fever reduction Referrals: Keven Antunez MD [Staff Provider] - Follow up with primary Tobias Medel MD [Staff Provider] - Follow up with primary Madeline Powers MD [Medical Doctor] - Follow up with primary Medical [facility] [Outside] - Follow up with primary Forms: [employer] ([place]), WORK NOTE
--- NOTE | 2018-01-08 15:23 | US ---
PROCEDURE: Right lower extremity venous US HISTORY: Leg pain and swelling. Evaluate for DVT. PHYSICIAN(S): Tobias Medel M.D. TECHNIQUE: Duplex sonography and color-flow Doppler with graded compression were used to evaluate the deep venous system of the right lower extremity. FINDINGS: The visualized deep venous system of the right lower extremity is sonographically normal and compressible. Normal waveforms and augmentation are seen. There is no sonographic evidence for deep venous thrombosis in the visualized segments of the right lower extremity. IMPRESSION: 1. No sonographic evidence for deep venous thrombosis in the visualized segments of the right lower extremity.
[2018-01-08 17:19] VITALS: BP 126/79; PULSE 84; O2SAT 98
== END 2018-01-08 17:16 | disposition home or self-care (01) ==
LOC: ED 13:05
DX: I83.91 Asymptomatic varicose veins of right lower extremity (principal); M79.661 Pain in right lower leg; I10 Essential (primary) hypertension; Z87.891 Personal history of nicotine dependence
CPT/HCPCS: 93971; 96372; 99283; J1885

== ENCOUNTER 2018-02-02 16:53 | Emergency (ER) | payer OTHER ==
[2018-02-02 16:53] VITALS: BMI 28.1
--- NOTE | 2018-02-02 17:36 | ED PDOC ---
Arrival/HPI - General Chief Complaint: Flu-like Symptoms Historian: Patient - History of Present Illness Narrative History of Present Illness (Text): 02/02/18 17:33 52 y/o male, pmh including htn/bronchitis, nkda, previous smoker, c/o runny nose/coughing x 1 week. Pt. stated that he has runny nose, associated with productive coughing, no leg swelling, no fatigue, no myalgia or arthralgia, no other medical or psychological complaints. Past Medical History - Provider Review Nursing Documentation Reviewed: Yes - Past History Past History: No Previous - Infectious Disease Hx of Infectious Diseases: None - Cardiac Hx Cardiac Disorders: Yes Hx Hypertension: Yes - Pulmonary Hx Respiratory Disorders: Yes Hx Bronchitis: Yes - Neurological Hx Neurological Disorder: No - HEENT Hx HEENT Disorder: No - Renal Hx Renal Disorder: No - Endocrine/Metabolic Hx Endocrine Disorders: No - Hematological/Oncological Hx Blood Disorders: No - Integumentary Other/Comment: TINEA - Musculoskeletal/Rheumatological Hx Musculoskeletal Disorders: No - Gastrointestinal Hx Gastrointestinal Disorders: No - Genitourinary/Gynecological Hx Genitourinary Disorders: No - Psychiatric Hx Psychophysiologic Disorder: No Hx Substance Use: No - Surgical History Hx Eye Surgery: Yes Hx Orthopedic Surgery: Yes (R KNEE) - Anesthesia Hx Anesthesia: Yes Hx Anesthesia Reactions: No Hx Malignant Hyperthermia: No Family/Social History - Physician Review Nursing Documentation Reviewed: Yes Family/Social History: Unknown Family HX Smoking Status: Former Smoker Hx Alcohol Use: No Hx Substance Use: No Hx Substance Use Treatment: No Allergies/Home Meds Allergies/Adverse Reactions: Allergies No Known Allergies Allergy (Verified 02/02/18 17:28) Review of Systems - Review of Systems Constitutional: absent: Fatigue, Fevers Eyes: absent: Vision Changes ENT: Rhinorrhea. absent: Hearing Changes Respiratory: Cough, Sputum. absent: SOB, Wheezing Cardiovascular: absent: Chest Pain Gastrointestinal: absent: Abdominal Pain, Nausea, Vomiting Musculoskeletal: absent: Arthralgias, Back Pain Skin: absent: Rash, Pruritis Neurological: absent: Headache, Dizziness Psychiatric: absent: Anxiety, Depression, Suicidal Ideation Physical Exam Vital Signs Reviewed: Yes Vital Signs Temp Pulse Resp BP Pulse Ox 02/02/18 17:26 98.6 F 81 20 137/86 97 Temperature: Afebrile Blood Pressure: Normal Pulse: Regular Respiratory Rate: Normal Appearance: Positive for: Well-Appearing, Non-Toxic, Comfortable Pain Distress: None Mental Status: Positive for: Alert and Oriented X 3 - Systems Exam Head: Present: Atraumatic, Normocephalic Pupils: Present: PERRL Extroacular Muscles: Present: EOMI Conjunctiva: Present: Normal Mouth: Present: Moist Mucous Membranes Nose (External): Present: Atraumatic. No: Abrasion, Contusion, Laceration, Lesions Nose (Internal): Present: Normal Inspection, No Active Bleeding, Rhinorrhea. No: Septal Hematoma, Epistaxis Neck: Present: Normal Range of Motion, Trachea Midline. No: Meningeal Signs, MIDLINE TENDERNESS, Lymphadenopathy Respiratory/Chest: Present: Clear to Auscultation, Good Air Exchange. No: Respiratory Distress, Accessory Muscle Use, Wheezes, Decreased Breath Sounds, Rales, Retracting, Rhonchi, Tachypneic, Tender to Palpation Cardiovascular: Present: Regular Rate and Rhythm, Normal S1, S2. No: Murmurs Abdomen: No: Tenderness, Distention, Peritoneal Signs Back: Present: Normal Inspection. No: CVA Tenderness, Midline Tenderness, Paraspinal Tenderness Upper Extremity: Present: Normal Inspection, Normal ROM, NORMAL PULSES, Capillary Refill < 2s. No: Cyanosis, Edema, Deformity Lower Extremity: Present: Normal Inspection, NORMAL PULSES, Normal ROM, Neurovascularly Intact, Capillary Refill < 2 s. No: Edema, Tenderness, Swelling, Deformity Neurological: Present: GCS=15, CN II-XII Intact, Speech Normal, Motor Func Grossly Intact, Gait Normal, Memory Normal Skin: Present: Warm, Dry, Normal Color. No: Rashes Lymphatic: No: Cervical Adenopathy, Axillary Adenopathy Psychiatric: Present: Alert, Oriented x 3, Normal Insight, Normal Concentration Medical Decision Making ED Course and Treatment: 02/02/18 17:36 -Chest xray 02/02/18 18:10 -Chest xray: No active disease. No significant interval change compared to the prior examination(s). -Pt. feels well, unlikely influenza. -Discharge home with zithromax, bromfed dm, stay hydrated, follow up with your own pmd within 2 days, return to ER for any new or worsening signs or symptoms. - RAD Interpretation Radiology Orders: 02/02/18 17:32 CHEST TWO VIEWS (PA/LAT) [RAD] Stat Date of service: 02/02/2018 HISTORY: cough x 1 week COMPARISON: 10/25/2017. TECHNIQUE: Chest PA and lateral FINDINGS: LUNGS: No active pulmonary disease. PLEURA: No significant pleural effusion identified. No pneumothorax apparent. CARDIOVASCULAR: No aortic atherosclerotic calcification present. Normal cardiac size. No pulmonary vascular congestion. OSSEOUS STRUCTURES: No significant abnormalities. VISUALIZED UPPER ABDOMEN: Normal. OTHER FINDINGS: None. IMPRESSION: No active disease. No significant interval change compared to the prior examination(s). Experimental Machinist: Radiologist - PA / OIL SEPARATOR / Resident Statement MD/DO has reviewed & agrees with the documentation as recorded. Disposition/Present on Arrival - Present on Arrival Any Indicators Present on Arrival: No History of DVT/PE: No History of Uncontrolled Diabetes: No Urinary Catheter: No History of Decub. Ulcer: No History Surgical Site Infection Following: None - Disposition Have Diagnosis and Disposition been Completed?: Yes Diagnosis: URI (upper respiratory infection) Disposition: HOME/ ROUTINE Disposition Time: 18:12 Patient Plan: Discharge Patient Problems: Current Active Problems Problem Status Onset URI (upper respiratory infection) Acute Condition: GOOD Additional Instructions: -Discharge home with zithromax, bromfed dm, stay hydrated, follow up with your own pmd within 2 days, return to ER for any new or worsening signs or symptoms. Prescriptions: Azithromycin [Zithromax] 250 mg PO DAILY #4 tab Brompheniramine/Pseudoephed/Dm [Bromfed Dm Cough 118 ml] 10 ml PO QID PRN #200 ml PRN Reason: Other Referrals: [facility] at [facility] [place] [Outside] - Follow up with primary Forms: [employer] (Malay), WORK NOTE
[2018-02-02 17:41] VITALS: TEMP 98.6
--- NOTE | 2018-02-02 18:08 | RAD ---
Date of service: 02/02/2018 HISTORY: cough x 1 week COMPARISON: 10/25/2017. TECHNIQUE: Chest PA and lateral FINDINGS: LUNGS: No active pulmonary disease. PLEURA: No significant pleural effusion identified. No pneumothorax apparent. CARDIOVASCULAR: No aortic atherosclerotic calcification present. Normal cardiac size. No pulmonary vascular congestion. OSSEOUS STRUCTURES: No significant abnormalities. VISUALIZED UPPER ABDOMEN: Normal. OTHER FINDINGS: None. IMPRESSION: No active disease. No significant interval change compared to the prior examination(s).
[2018-02-02 18:40] VITALS: BP 133/85; PULSE 86; RESP 19; O2SAT 98
== END 2018-02-02 18:40 | disposition home or self-care (01) ==
LOC: ED 16:53
DX: J06.9 Acute upper respiratory infection, unspecified (principal); I10 Essential (primary) hypertension; Z87.891 Personal history of nicotine dependence

== ENCOUNTER 2018-02-03 16:34 | Emergency (ER) | payer OTHER ==
[2018-02-03 16:42] VITALS: BMI 27.8
[2018-02-03 16:43] VITALS: BP 143/93; PULSE 87; RESP 18; TEMP 98.4; O2SAT 97
--- NOTE | 2018-02-03 17:00 | ED PDOC ---
Arrival/HPI - General Chief Complaint: Abnormal Skin Integrity Historian: Patient - History of Present Illness Narrative History of Present Illness (Text): 02/03/18 17:05 52 y/o M w/ h/o bronchitis presenting to the Emergency Room with complaint of rash on his neck. The patient describes the rash as vesicular, burning, localized to one side of the neck(left) that developed over the last 24 hours. The patient reports a stinging sensation that preceded the rash 2 days prior. He reports applying clotrimazole and triamcinolone cream to the area in the hopes of symptomatic relief with no resolution in his pain. Of note, he was seen in the ER the prior day for bronchitis and was treated with azithromycin. The patient is unsure of whether the azithromycin caused the appearance of the rash, but he denies chest discomfort, shortness of breath, hives, difficulty speaking or periorbital edema. PCP: Dr. Kinney Time/Duration: 24 hours Symptom Onset: Gradual Symptom Course: Unchanged Activities at Onset: Rest Context: Home Past Medical History - Provider Review Nursing Documentation Reviewed: Yes - Travel History Have you recently traveled outside [place] w/in the past 3 mons?: No - Past History Past History: No Previous - Infectious Disease Hx of Infectious Diseases: None - Cardiac Hx Cardiac Disorders: Yes Hx Hypertension: Yes - Pulmonary Hx Respiratory Disorders: Yes Hx Bronchitis: Yes - Neurological Hx Neurological Disorder: No - HEENT Hx HEENT Disorder: No - Renal Hx Renal Disorder: No - Endocrine/Metabolic Hx Endocrine Disorders: No - Hematological/Oncological Hx Blood Disorders: No - Integumentary Other/Comment: TINEA - Musculoskeletal/Rheumatological Hx Musculoskeletal Disorders: No - Gastrointestinal Hx Gastrointestinal Disorders: No - Genitourinary/Gynecological Hx Genitourinary Disorders: No - Psychiatric Hx Psychophysiologic Disorder: No Hx Substance Use: No - Surgical History Hx Eye Surgery: Yes Hx Orthopedic Surgery: Yes (R KNEE) - Anesthesia Hx Anesthesia: Yes Hx Anesthesia Reactions: No Hx Malignant Hyperthermia: No Family/Social History - Physician Review Nursing Documentation Reviewed: Yes Family/Social History: Unknown Family HX Smoking Status: Former Smoker Hx Alcohol Use: No Hx Substance Use: No Hx Substance Use Treatment: No Allergies/Home Meds Allergies/Adverse Reactions: Allergies No Known Allergies Allergy (Verified 02/02/18 17:28) Review of Systems - Physician Review All systems were reviewed & negative as marked: Yes - Review of Systems Skin: Rash (vesicular rash noted to L side of posterior nape) Physical Exam Vital Signs Reviewed: Yes Vital Signs Temp Pulse Resp BP Pulse Ox 02/03/18 16:34 98.4 F 87 18 143/93 H 97 Temperature: Afebrile Blood Pressure: Hypertensive Pulse: Regular Respiratory Rate: Normal Appearance: Positive for: Well-Appearing, Non-Toxic, Comfortable Mental Status: Positive for: Alert and Oriented X 3 - Systems Exam Head: Present: Atraumatic, Normocephalic Pupils: Present: PERRL Extroacular Muscles: Present: EOMI Conjunctiva: Present: Normal Mouth: Present: Moist Mucous Membranes Pharnyx: No: Soft Palate/Uvular Edema Neck: Present: Normal Range of Motion, Other (Vesicular rash noted on C5 dermatome present near the left side of the occiput. Does not cross the midline) Respiratory/Chest: Present: Clear to Auscultation, Good Air Exchange. No: Respiratory Distress, Wheezes, Rales, Retracting Cardiovascular: Present: Regular Rate and Rhythm, Normal S1, S2 Abdomen: Present: Normal Bowel Sounds. No: Tenderness, Distention Upper Extremity: Present: Normal Inspection Lower Extremity: Present: Normal Inspection Neurological: Present: GCS=15, CN II-XII Intact, Speech Normal Skin: Present: Warm, Dry, Rashes (Vesicular rash noted on C5 dermatome present near the left side of the occiput. Does not cross the midline), Normal Color Psychiatric: Present: Alert, Oriented x 3, Normal Insight, Normal Concentration Medical Decision Making ED Course and Treatment: 02/03/18 17:36 Impression 52F w/ vesicular rash present to the nape Differential Diagnoses Include But Is Not Limited To: --Shingles --Contact Dermatitis Plan --Acyclovir --Reassess & disposition Progress Notes 02/03/18 17:49 Patient reassured regarding rash and advised complete cessation of applying ointment to the area. He is advised to take acyclovir and to follow up in clinic prior to seeing his PCP in February. Scripts provided. He is stable for discharge. - Medication Orders Current Medication Orders: Acyclovir (Zovirax) 400 mg PO ONCE ONE; Protocol Stop: 02/03/18 16:54 Disposition/Present on Arrival - Present on Arrival Any Indicators Present on Arrival: No History of DVT/PE: No History of Uncontrolled Diabetes: No Urinary Catheter: No History of Decub. Ulcer: No History Surgical Site Infection Following: None - Disposition Have Diagnosis and Disposition been Completed?: Yes Diagnosis: Shingles Disposition: HOME/ ROUTINE Disposition Time: 16:56 Patient Plan: Discharge Condition: STABLE Discharge Instructions (ExitCare): Shingles (DC), Shingles (ED) Print Language: TONGAN Additional Instructions: Please continue taking your medication as prescribed Please stop placing any ointment on your neck Prescriptions: Acyclovir [Zovirax] 400 mg PO TID 10 Days #30 tablet Referrals: Madeline Powers MD [Medical Doctor] - Follow up with primary [facility] at [facility] [place] [Outside] - Follow up with primary
== END 2018-02-03 17:22 | disposition home or self-care (01) ==
LOC: ED 16:34
DX: B02.9 Zoster without complications (principal)
CPT/HCPCS: 99282; J8499

== ENCOUNTER 2018-03-17 23:38 | Emergency (ER) | payer OTHER ==
[2018-03-17 23:39] VITALS: BMI 27.8
--- NOTE | 2018-03-18 00:26 | ED PDOC ---
Arrival/HPI - General Chief Complaint: Finger,Hand,&Wrist Time Seen by Provider: 03/18/18 00:18 Historian: Patient - History of Present Illness Narrative History of Present Illness (Text): 03/18/18 00:22 52 year old male, with no significant past medical history, presents to the emergency department with pain to the left hand, status post injury. 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 Patient states his hand got stuck in between a bin and the doorway. Patient states his hand became painful and swollen. Patient denies any other injuries. Patient denies any fevers, chills, headache, dizziness, shortness of breath, chest pain, cough, abdominal pain, nausea, vomiting, diarrhea, back pain, neck pain, or any other complaints. Time/Duration: Prior to Arrival Symptom Onset: Sudden Symptom Course: Unchanged Quality: Aching Activities at Onset: Significant Context: Work Past Medical History - Provider Review Nursing Documentation Reviewed: Yes - Past History Past History: No Previous - Infectious Disease Hx of Infectious Diseases: None - Cardiac Hx Cardiac Disorders: Yes Hx Hypertension: Yes - Pulmonary Hx Respiratory Disorders: Yes Hx Bronchitis: Yes - Neurological Hx Neurological Disorder: No - HEENT Hx HEENT Disorder: No - Renal Hx Renal Disorder: No - Endocrine/Metabolic Hx Endocrine Disorders: No - Hematological/Oncological Hx Blood Disorders: No - Integumentary Other/Comment: TINEA - Musculoskeletal/Rheumatological Hx Musculoskeletal Disorders: Yes Hx Arthritis: Yes - Gastrointestinal Hx Gastrointestinal Disorders: No - Genitourinary/Gynecological Hx Genitourinary Disorders: No - Psychiatric Hx Psychophysiologic Disorder: No Hx Substance Use: No - Surgical History Hx Eye Surgery: Yes (R eye socket) Hx Orthopedic Surgery: Yes (R KNEE) - Anesthesia Hx Anesthesia: Yes Hx Anesthesia Reactions: No Hx Malignant Hyperthermia: No Family/Social History - Physician Review Nursing Documentation Reviewed: Yes Family/Social History: No Known Family HX Smoking Status: Former Smoker Hx Alcohol Use: No Hx Substance Use: No Hx Substance Use Treatment: No Allergies/Home Meds Allergies/Adverse Reactions: Allergies No Known Allergies Allergy (Verified 02/02/18 17:28) Home Medications: Home Meds Medication Instructions Recorded Confirmed amLODIPine [Norvasc] 10 mg PO DAILY 03/18/18 03/18/18 Review of Systems - Physician Review All systems were reviewed & negative as marked: Yes - Review of Systems Constitutional: absent: Fevers, Night Sweats Respiratory: absent: SOB, Cough Cardiovascular: absent: Chest Pain Gastrointestinal: absent: Abdominal Pain, Diarrhea, Nausea, Vomiting Musculoskeletal: Joint Swelling, Myalgias. absent: Back Pain, Neck Pain Neurological: absent: Headache, Dizziness Physical Exam Vital Signs Reviewed: Yes Vital Signs Temp Pulse Resp BP Pulse Ox 03/18/18 00:18 98.1 F 91 H 20 146/98 H 95 Temperature: Afebrile Blood Pressure: Normal Pulse: Tachycardic Respiratory Rate: Normal Appearance: Positive for: Well-Appearing, Non-Toxic, Comfortable Pain Distress: None Mental Status: Positive for: Alert and Oriented X 3 - Systems Exam Head: Present: Atraumatic, Normocephalic Pupils: Present: PERRL Extroacular Muscles: Present: EOMI Conjunctiva: Present: Normal Mouth: Present: Moist Mucous Membranes Neck: Present: Normal Range of Motion Respiratory/Chest: Present: Clear to Auscultation, Good Air Exchange. No: Respiratory Distress, Accessory Muscle Use Cardiovascular: Present: Regular Rate and Rhythm, Normal S1, S2. No: Murmurs Abdomen: No: Tenderness, Distention, Peritoneal Signs Back: Present: Normal Inspection Upper Extremity: Present: Normal ROM, Swelling, Other (Superficial abrasion to the dorsal aspect of the left hand) Lower Extremity: Present: Normal Inspection. No: Edema Neurological: Present: GCS=15, CN II-XII Intact, Speech Normal Skin: Present: Warm, Dry, Normal Color. No: Rashes Psychiatric: Present: Alert, Oriented x 3, Normal Insight, Normal Concentration Medical Decision Making ED Course and Treatment: 03/18/18 00:30 Impression: 52 year old male presents with injury to left hand Plan: -- X-ray left hand -- Reassess and disposition Prior Visits: Notes and results from previous visits were reviewed Progress Notes: 03/18/18 03:09 Hand-No acute process - RAD Interpretation Radiology Orders: 03/18/18 00:20 HAND LEFT 3 VIEWS ROUTINE [RAD] Stat - Scribe Statement The provider has reviewed the documentation as recorded by the Scribe Tobias Gan Provider Scribe Attestation: All medical record entries made by the Scribe were at my direction and personally dictated by me. I have reviewed the chart and agree that the record accurately reflects my personal performance of the history, physical exam, medical decision making, and the department course for this patient. I have also personally directed, reviewed, and agree with the discharge instructions and disposition. Disposition/Present on Arrival - Present on Arrival Any Indicators Present on Arrival: No History of DVT/PE: No History of Uncontrolled Diabetes: No Urinary Catheter: No History of Decub. Ulcer: No History Surgical Site Infection Following: None - Disposition Have Diagnosis and Disposition been Completed?: Yes Diagnosis: Hand contusion Disposition: HOME/ ROUTINE Disposition Time: 03:11 Patient Plan: Discharge Condition: GOOD Additional Instructions: Place cool compresses to the area/Tylenol as directed/follow up with your doctor Referrals: Monty Jean-Baptiste MD [Primary Care Provider] - Follow up with primary Forms: [facility] ([place]ri[place]), WORK NOTE
[2018-03-18 00:30] VITALS: BP 146/98; PULSE 91; TEMP 98.1
[2018-03-18 03:23] VITALS: RESP 18; O2SAT 98
--- NOTE | 2018-03-18 14:03 | RAD ---
PROCEDURE: Left Hand Radiographs. HISTORY: Left hand injury, anatomic site not specified. COMPARISON: None. FINDINGS: BONES: Normal. No fracture. JOINTS: Normal. No osteoarthritic changes. SOFT TISSUES: Normal. OTHER FINDINGS: None. IMPRESSION: Normal left hand radiographs.
== END 2018-03-18 03:22 | disposition home or self-care (01) ==
LOC: ED 23:38
DX: S60.222A Contusion of left hand, initial encounter (principal); W23.0XXA Caught, crushed, jammed, or pinched between moving objects, initial encounter; Y99.0 Civilian activity done for income or pay

== ENCOUNTER 2018-04-07 15:03 | Emergency (ER) | payer OTHER ==
[2018-04-07 15:04] VITALS: BMI 27.8
[2018-04-07 15:29] VITALS: TEMP 98.5
--- NOTE | 2018-04-07 15:54 | ED PDOC ---
Arrival/HPI - General Chief Complaint: ENT Problem Time Seen by Provider: 04/07/18 15:04 Historian: Patient - History of Present Illness Narrative History of Present Illness (Text): 04/07/18 15:04 Marcelo Murphy is a 52 year old male, with past medical history of hypertension, who presents to the emergency department complaining of sinus infection since two weeks. Patient notes pain described as pressure in the temples. Patient also notes burning sensation in the nose and is blowing out streaks of blood with nasal mucus. Patient informs taking Zyrtec and Advil cold and sinus with no significant improvement. Patient also informs of foul smelling urine since 4 days. Patient informs of body aches. Patient denies pus-filled mucus, bloody urine, bloody/darkened stool, flank pain, constipation, abdominal pain, nausea, vomiting, diarrhea, fever, chills, back pain, neck pain, or any other complaints. Time/Duration: > week (2 weeks) Symptom Onset: Gradual Symptom Course: Unchanged Quality: Pressure, Burning Activities at Onset: Light Context: Home Past Medical History - Provider Review Nursing Documentation Reviewed: Yes - Past History Past History: No Previous - Infectious Disease Hx of Infectious Diseases: None - Cardiac Hx Cardiac Disorders: Yes Hx Hypertension: Yes - Pulmonary Hx Respiratory Disorders: Yes Hx Bronchitis: Yes - Neurological Hx Neurological Disorder: No - HEENT Hx HEENT Disorder: No - Renal Hx Renal Disorder: No - Endocrine/Metabolic Hx Endocrine Disorders: No - Hematological/Oncological Hx Blood Disorders: No - Integumentary Hx Dermatological Disorder: Yes Other/Comment: TINEA - Musculoskeletal/Rheumatological Hx Musculoskeletal Disorders: Yes Hx Arthritis: Yes - Gastrointestinal Hx Gastrointestinal Disorders: No - Genitourinary/Gynecological Hx Genitourinary Disorders: No - Psychiatric Hx Psychophysiologic Disorder: No Hx Substance Use: No - Surgical History Hx Eye Surgery: Yes Hx Orthopedic Surgery: Yes (R KNEE) - Anesthesia Hx Anesthesia: Yes Hx Anesthesia Reactions: No Hx Malignant Hyperthermia: No Family/Social History - Physician Review Nursing Documentation Reviewed: Yes Family/Social History: No Known Family HX Smoking Status: Former Smoker Hx Alcohol Use: No Hx Substance Use: No Hx Substance Use Treatment: No Allergies/Home Meds Allergies/Adverse Reactions: Allergies No Known Allergies Allergy (Verified 04/07/18 15:15) Home Medications: Home Meds Medication Instructions Recorded Confirmed amLODIPine [Norvasc] 10 mg PO DAILY 03/18/18 04/07/18 Review of Systems - Physician Review All systems were reviewed & negative as marked: Yes - Review of Systems Constitutional: absent: Fatigue, Weight Change, Fevers, Night Sweats Eyes: absent: Vision Changes, Photophobia, Eye Pain ENT: Epistaxis (Streaks of blood in mucus), Sinus Congestion. absent: Hearing Changes, Tinnitus, TMJ Pain, Voice Changes, Sore Throat, Rhinorrhea Respiratory: absent: SOB, Cough, Sputum, Wheezing Cardiovascular: absent: Chest Pain, Palpitations, Edema, Calf Pain Gastrointestinal: absent: Abdominal Pain, Stool Changes, Constipation, Nausea, V omiting, Hematochezia Genitourinary Male: Other (foul smelling urine since 4 days). absent: Dysuria, Frequency, Hematuria, Urinary Output Changes Musculoskeletal: Myalgias. absent: Back Pain, Neck Pain Skin: absent: Rash, Pruritis, Skin Lesions Neurological: Headache. absent: Dizziness Physical Exam Vital Signs Reviewed: Yes Vital Signs Temp Pulse Resp BP Pulse Ox 04/07/18 15:15 98.5 F 77 17 132/91 H 95 Temperature: Afebrile Blood Pressure: Normal Pulse: Regular Respiratory Rate: Normal Appearance: Positive for: Well-Appearing, Non-Toxic, Comfortable Pain Distress: None Mental Status: Positive for: Alert and Oriented X 3 - Systems Exam Head: Present: Atraumatic, Normocephalic, Other (tender maxillary sinus) Pupils: Present: PERRL Extroacular Muscles: Present: EOMI Conjunctiva: Present: Normal Mouth: Present: Moist Mucous Membranes Pharnyx: Present: Normal. No: ERYTHEMA, EXUDATE, TONSILS ENLARGED, Peritonsilar Swelling, Uvular Deviation, Muffled/Hoarse Voice Nose (External): Present: Atraumatic. No: Abrasion, Contusion Nose (Internal): Present: No Active Bleeding, Clear Mucous, Other (Nasal congestion). No: Moist, Engorged, Edematous, Rhinorrhea, Purulent Mucous, Septal Deviation, Septal Hematoma, Epistaxis Neck: Present: Normal Range of Motion Respiratory/Chest: Present: Clear to Auscultation, Good Air Exchange. No: Respiratory Distress, Accessory Muscle Use Cardiovascular: Present: Regular Rate and Rhythm, Normal S1, S2. No: Murmurs Abdomen: Present: Normal Bowel Sounds. No: Tenderness, Distention, Peritoneal Signs Back: Present: Normal Inspection. No: CVA Tenderness, Midline Tenderness Upper Extremity: Present: Normal Inspection. No: Cyanosis, Edema Lower Extremity: Present: Normal Inspection. No: Edema Neurological: Present: GCS=15, CN II-XII Intact, Speech Normal Skin: Present: Warm, Dry, Normal Color. No: Rashes Lymphatic: No: Cervical Adenopathy Psychiatric: Present: Alert, Oriented x 3, Normal Insight, Normal Concentration Medical Decision Making ED Course and Treatment: 04/07/18 15:04 Impression: Patient is a 52 year old male who presents to the emergency department complaining of sinus infection. Nasal congestion. Tender maxillary sinus. No pain w/ eye movement. No orbital cellulitis noted. No purulent nasal d/c. No AMS. Normal neuro exam. No meningeal signs. No flank pain. Likely sinusitis given time frame of nasal congestion and sinus pain x14d. Differential Diagnosis included but are not limited to: sinusitis vs UTI vs influenza Plan: -- Urinalysis -- Influenza A/B -- Sodium Chloride .9% Inh Soln -- Reassess and disposition Prior Visits: Notes and results from previous visits were reviewed. Progress Notes: 04/07/18 17:37 flu negative, negative Urinalysis Nasal exam remains stable. clear for d/c home with return indications and follow up - Scribe Statement The provider has reviewed the documentation as recorded by the Scribe Archie Cooney All medical record entries made by the Scribe were at my direction and personally dictated by me. I have reviewed the chart and agree that the record accurately reflects my personal performance of the history, physical exam, medical decision making, and the department course for this patient. I have also personally directed, reviewed, and agree with the discharge instructions and disposition. Disposition/Present on Arrival - Present on Arrival Any Indicators Present on Arrival: No History of DVT/PE: No History of Uncontrolled Diabetes: No Urinary Catheter: No History of Decub. Ulcer: No History Surgical Site Infection Following: None - Disposition Have Diagnosis and Disposition been Completed?: Yes Diagnosis: Sinusitis Disposition: HOME/ ROUTINE Disposition Time: 17:37 Patient Problems: Current Active Problems Problem Status Onset Sinusitis Acute Condition: GOOD Discharge Instructions (ExitCare): Sinusitis in Adults, Bacterial Upper Respiratory Infection, Adult Additional Instructions: MARCELO MURPHY, thank you for letting us take care of you today. Your provider was Maury Farah and you were treated for POSSIBLE INFECTION IN URINE AND SINUS PROBLEMS. The emergency medical care you received today was directed at your acute symptoms. If you were prescribed any medication, please fill it and take a s directed. It may take several days for your symptoms to resolve. Return to the Emergency Department if your symptoms worsen, do not improve, or if you have any other problems. Please contact your doctor or call one of the physicians/clinics you have been referred to that are listed on the Patient Visit Information form that is included in your discharge packet. Bring any paperwork you were given at discharge with you along with any medications you are taking to your follow up visit. Our treatment cannot replace ongoing medical care by a primary care provider outside of the emergency department. Thank you for allowing the [facility] team to be part of your care today. If you had an X-Ray or CT scan: A Radiologist will review the ED reading if any change in treatment is needed we will contact you. If you had a blood, urine, or wound culture: It will take several days for the results, if any change in treatment is needed we will contact you. If you had an STI test: It will take 48 hours for the results. Please call after 1 week if you have not heard back. Prescriptions: Amoxicillin/Clavulanate [Augmentin 875 MG-125 MG] 1 tab PO BID 10 Days #20 tab Referrals: [facility] [Outside] - Follow up with primary [facility] [place] [Outside] - Follow up with primary [facility] [Outside] - Follow up with primary Monty Jean-Baptiste MD [Primary Care Provider] - Follow up with primary Umer Cortés MD [Staff Provider] - Follow up with primary Chris Ojeda DO [Doctor Osteopathy] - Follow up with primary Forms: [facility] (Malay), WORK NOTE
[2018-04-07] MEDS ORDERED: Sodium Chloride 0.9% Inh Soln (3mL) UD IH STA (16:03)
[2018-04-07 16:42] LABS: URINE BILIRUBIN NEGATIVE (NEGATIVE); URINE BLOOD NEGATIVE (NEGATIVE); URINE GLUCOSE (UA) NEGATIVE (NEGATIVE); URINE LEUKOCYTE ESTERASE NEGATIVE Leu/uL (NEGATIVE); URINE PROTEIN NEGATIVE mg/dL (<30 mg/dL); URINE UROBILINOGEN 0.2 E.U./dL (<1 E.U./dL)
[2018-04-07 16:53] LABS: URINE APPEARANCE CLEAR (CLEAR)
[2018-04-07 17:44] VITALS: BP 128/73; PULSE 72; RESP 18; O2SAT 96
== END 2018-04-07 17:43 | disposition home or self-care (01) ==
LOC: ED 15:03
DX: J32.9 Chronic sinusitis, unspecified (principal); I10 Essential (primary) hypertension; Z87.891 Personal history of nicotine dependence

== ENCOUNTER 2018-04-30 06:14 | Emergency (ER) | payer OTHER ==
[2018-04-30 06:15] VITALS: BMI 27.8
[2018-04-30 06:35] VITALS: BP 132/92; PULSE 74; RESP 18; TEMP 97.2; O2SAT 96
--- NOTE | 2018-04-30 07:06 | ED PDOC ---
Arrival/HPI - General Chief Complaint: Cough, Cold, Congestion Historian: Patient - History of Present Illness Narrative History of Present Illness (Text): 04/30/18 07:06 52M w/ h/o HTN and seasonal allergies presenting to the Emergency Room with symptoms of nasal irritation. Patient states he was recently seen in the ED about 1 week ago and was given Augmentin for his sinusitis which provided immediately relief. However, 2 days ago the patient states he started noting periorbital pressure, headaches which were gradual in onset and bloody discharge whenever he blew his nose. He denies cough, dyspnea, visual disturbances, periorbial pain, periorbital swelling, urticarial lesions, fevers, chills, or syncopal episodes at this time. PCP: Dr. Hill Time/Duration: Prior to Arrival Symptom Onset: Gradual Symptom Course: Unchanged Quality: Pressure Activities at Onset: Rest Context: Home Past Medical History - Provider Review Nursing Documentation Reviewed: Yes - Travel History Have you recently traveled outside [place] w/in the past 3 mons?: No - Past History Past History: No Previous - Infectious Disease Hx of Infectious Diseases: None - Cardiac Hx Cardiac Disorders: Yes Hx Hypertension: Yes - Pulmonary Hx Respiratory Disorders: Yes Hx Bronchitis: Yes - Neurological Hx Neurological Disorder: No - HEENT Hx HEENT Disorder: No - Renal Hx Renal Disorder: No - Endocrine/Metabolic Hx Endocrine Disorders: No - Hematological/Oncological Hx Blood Disorders: No - Integumentary Hx Dermatological Disorder: Yes Other/Comment: TINEA - Musculoskeletal/Rheumatological Hx Musculoskeletal Disorders: Yes Hx Arthritis: Yes - Gastrointestinal Hx Gastrointestinal Disorders: No - Genitourinary/Gynecological Hx Genitourinary Disorders: No - Psychiatric Hx Psychophysiologic Disorder: No Hx Substance Use: No - Surgical History Hx Eye Surgery: Yes Hx Orthopedic Surgery: Yes (R KNEE) - Anesthesia Hx Anesthesia: Yes Hx Anesthesia Reactions: No Hx Malignant Hyperthermia: No Family/Social History - Physician Review Nursing Documentation Reviewed: Yes Family/Social History: Unknown Family HX Smoking Status: Former Smoker Hx Alcohol Use: No Hx Substance Use: No Hx Substance Use Treatment: No Allergies/Home Meds Allergies/Adverse Reactions: Allergies No Known Allergies Allergy (Verified 04/07/18 15:15) Home Medications: Home Meds Medication Instructions Recorded Confirmed amLODIPine [Norvasc] 10 mg PO DAILY 02/06/19 03/21/19 Review of Systems - Physician Review All systems were reviewed & negative as marked: Yes - Review of Systems Eyes: absent: Photophobia, Eye Pain ENT: Sinus Congestion. absent: Rhinorrhea, Epistaxis Physical Exam Vital Signs Reviewed: Yes Vital Signs Temp Pulse Resp BP Pulse Ox 04/30/18 06:34 97.2 F L 74 18 132/92 H 96 Temperature: Afebrile Blood Pressure: Hypertensive Pulse: Regular Respiratory Rate: Normal Appearance: Positive for: Well-Appearing, Non-Toxic, Comfortable Pain Distress: None Mental Status: Positive for: Alert and Oriented X 3 - Systems Exam Head: Present: Atraumatic, Normocephalic Pupils: Present: PERRL Extroacular Muscles: Present: EOMI, Other (No pain with extra-ocular movements) Conjunctiva: Present: Normal Mouth: Present: Moist Mucous Membranes Nose (External): Present: Atraumatic, Other (congealed blood noted w/in R nasal turbinate, no gabriela bleeding). No: Abrasion, Contusion Neck: Present: Normal Range of Motion Respiratory/Chest: Present: Clear to Auscultation, Good Air Exchange. No: Respiratory Distress Cardiovascular: Present: Regular Rate and Rhythm, Normal S1, S2. No: Murmurs Abdomen: Present: Normal Bowel Sounds. No: Tenderness, Distention Neurological: Present: GCS=15, Speech Normal Skin: Present: Warm, Dry, Normal Color. No: Rashes Psychiatric: Present: Alert, Oriented x 3, Normal Insight, Normal Concentration Medical Decision Making ED Course and Treatment: 04/30/18 07:18 Impression 52M w/ h/o HTN and sinusitis presents with symptoms of nasal swelling, pressure and headache Differential Diagnoses Includes But Is Not Limited To: --Allergic Rhinitis --Periorbital cellulitis --Allergic Reaction Plan --Prednisone --Reassess & disposition Progress Notes 04/30/18 07:21 Patient denies any pain with extra-ocular movement nor any do-orbital swelling noted to the eyes b/l. He denies any headaches or nausea at this time. Discussion regarding nature of symptoms and possible causes discussed with patient agreeable to following up with his PCP. Opportunity for questions given and answered. Scripts provided. He is stable for discharge. Disposition/Present on Arrival - Present on Arrival Any Indicators Present on Arrival: No History of DVT/PE: No History of Uncontrolled Diabetes: No Urinary Catheter: No History of Decub. Ulcer: No History Surgical Site Infection Following: None - Disposition Have Diagnosis and Disposition been Completed?: Yes Diagnosis: Rhinitis Disposition: HOME/ ROUTINE Disposition Time: 07:02 Patient Plan: Discharge Condition: IMPROVED Discharge Instructions (ExitCare): Cough, Runny Nose, and the Common Cold (DC) Print Language: SOUTH SUDANESE Additional Instructions: Please follow up in clinic in 1 week Please take medications as prescribed Prescriptions: Methylprednisolone [Medrol Dose Pack (21 tabs)] 4 mg PO DAILY #21 mg Referrals: Yolie Tolentino NP [Primary Care Provider] - Follow up with primary Barney Lo DO [Staff Provider] - Follow up with primary
== END 2018-04-30 07:20 | disposition home or self-care (01) ==
LOC: ED 06:14
DX: J31.0 Chronic rhinitis (principal); I10 Essential (primary) hypertension; Z87.891 Personal history of nicotine dependence

== ENCOUNTER 2018-05-21 02:00 | Emergency (ER) | payer OTHER ==
[2018-05-21 02:00] VITALS: BMI 27.8
[2018-05-21 02:10] VITALS: PULSE 85; RESP 18; TEMP 97.7
--- NOTE | 2018-05-21 02:33 | ED PDOC ---
Arrival/HPI - General Chief Complaint: ENT Problem Historian: Patient - History of Present Illness Narrative History of Present Illness (Text): 05/21/18 02:29 52 year old male, with no significant past medical history, presents to the emergency department with left ear pain. Patient states he woke up from his sleep with pain. Patient informs he went to sleep feeling fine. Patient states it feels like something is moving in the ear, especially when moving jaw. Patient also informs using a vibha pin in ear to try and clear it out. Patient denies any fevers, chills, headache, dizziness, chest pain, shortness of breath, cough, diaphoresis, abdominal pain, nausea, vomiting, diarrhea, back pain, neck pain, or any other complaint. Time/Duration: Prior to Arrival Symptom Onset: Sudden Symptom Course: Unchanged Quality: Aching Activities at Onset: Sleeping Context: Home Past Medical History - Provider Review Nursing Documentation Reviewed: Yes - Past History Past History: No Previous - Infectious Disease Hx of Infectious Diseases: None - Cardiac Hx Cardiac Disorders: Yes Hx Hypertension: Yes - Pulmonary Hx Respiratory Disorders: Yes Hx Bronchitis: Yes - Neurological Hx Neurological Disorder: No - HEENT Hx HEENT Disorder: No - Renal Hx Renal Disorder: No - Endocrine/Metabolic Hx Endocrine Disorders: No - Hematological/Oncological Hx Blood Disorders: No - Integumentary Hx Dermatological Disorder: Yes Other/Comment: TINEA - Musculoskeletal/Rheumatological Hx Musculoskeletal Disorders: Yes Hx Arthritis: Yes - Gastrointestinal Hx Gastrointestinal Disorders: No - Genitourinary/Gynecological Hx Genitourinary Disorders: No - Psychiatric Hx Psychophysiologic Disorder: No Hx Substance Use: No - Surgical History Hx Eye Surgery: Yes Hx Orthopedic Surgery: Yes (R KNEE) - Anesthesia Hx Anesthesia: Yes Hx Anesthesia Reactions: No Hx Malignant Hyperthermia: No Family/Social History - Physician Review Nursing Documentation Reviewed: Yes Family/Social History: No Known Family HX Smoking Status: Former Smoker Hx Alcohol Use: No Hx Substance Use: No Hx Substance Use Treatment: No Allergies/Home Meds Allergies/Adverse Reactions: Allergies No Known Allergies Allergy (Verified 05/21/18 02:08) Home Medications: Home Meds Medication Instructions Recorded Confirmed amLODIPine [Norvasc] 10 mg PO DAILY 03/18/18 05/21/18 Review of Systems - Physician Review All systems were reviewed & negative as marked: Yes - Review of Systems Constitutional: absent: Fevers, Night Sweats Respiratory: absent: SOB, Cough Cardiovascular: absent: Chest Pain Gastrointestinal: absent: Abdominal Pain, Diarrhea, Nausea, Vomiting Musculoskeletal: absent: Back Pain, Neck Pain Neurological: absent: Headache, Dizziness Endocrine: absent: Diaphoresis Physical Exam Vital Signs Reviewed: Yes Vital Signs Temp Pulse Resp BP Pulse Ox 05/21/18 02:10 97.7 F 85 18 133/78 98 Temperature: Afebrile Blood Pressure: Normal Pulse: Regular Respiratory Rate: Normal Appearance: Positive for: Well-Appearing, Non-Toxic, Comfortable Pain Distress: None Mental Status: Positive for: Alert and Oriented X 3 - Systems Exam Head: Present: Atraumatic, Normocephalic Pupils: Present: PERRL Extroacular Muscles: Present: EOMI Conjunctiva: Present: Normal Ears: Present: TM Bulging (Slight bulge of right TM; TMs opaque). No: Erythema (No erythema to ear canal) Mouth: Present: Moist Mucous Membranes Neck: Present: Normal Range of Motion Respiratory/Chest: Present: Clear to Auscultation, Good Air Exchange. No: Respiratory Distress, Accessory Muscle Use Cardiovascular: Present: Regular Rate and Rhythm, Normal S1, S2. No: Murmurs Abdomen: No: Tenderness, Distention, Peritoneal Signs Back: Present: Normal Inspection Upper Extremity: Present: Normal Inspection. No: Cyanosis, Edema Lower Extremity: Present: Normal Inspection. No: Edema Neurological: Present: GCS=15, CN II-XII Intact, Speech Normal Skin: Present: Warm, Dry, Normal Color. No: Rashes Psychiatric: Present: Alert, Oriented x 3, Normal Insight, Normal Concentration - Scribe Statement The provider has reviewed the documentation as recorded by the Kyle Gan Provider Scribe Attestation: All medical record entries made by the Scribe were at my direction and personally dictated by me. I have reviewed the chart and agree that the record accurately reflects my personal performance of the history, physical exam, medical decision making, and the department course for this patient. I have also personally directed, reviewed, and agree with the discharge instructions and disposition. Disposition/Present on Arrival - Present on Arrival Any Indicators Present on Arrival: No History of DVT/PE: No History of Uncontrolled Diabetes: No Urinary Catheter: No History of Decub. Ulcer: No History Surgical Site Infection Following: None - Disposition Have Diagnosis and Disposition been Completed?: Yes Diagnosis: Ear fullness, Foreign body sensation in ear canal Disposition: HOME/ ROUTINE Disposition Time: 02:39 Patient Plan: Discharge Condition: STABLE Print Language: POLISH Additional Instructions: All medical record entries made by the Scribe were at my direction and personally dictated by me. I have reviewed the chart and agree that the record accurately reflects my personal performance of the history, physical exam, medical decision making, and the department course for this patient. I have also personally directed, reviewed, and agree with the discharge instructions and disposition. Prescriptions: Carbamide Peroxide [Debrox Ear Drops] 150 drop AD Q8 #1 bottle Referrals: Yolie Tolentino, [employer] MANAGEMENT ADVISOR [Primary Care Provider] - Follow up with primary Forms: [facility] (Kiswahili)
[2018-05-21 02:49] VITALS: BP 130/72; O2SAT 100
== END 2018-05-21 02:48 | disposition home or self-care (01) ==
LOC: ED 02:00
DX: T16.2XXA Foreign body in left ear, initial encounter (principal); X58.XXXA Exposure to other specified factors, initial encounter; H93.8X2 Other specified disorders of left ear

== ENCOUNTER 2018-05-29 17:46 | Emergency (ER) | payer OTHER ==
[2018-05-29 18:05] VITALS: BMI 27.3
[2018-05-29 18:08] VITALS: RESP 18
[2018-05-29] MEDS ORDERED: Albuterol-Ipratrop 3 mg / 0.5 (3 ml) UD IH STA (18:18)
--- NOTE | 2018-05-29 18:33 | ED PDOC ---
Arrival/HPI - General Chief Complaint: Flu-like Symptoms Time Seen by Provider: 05/29/18 17:50 Historian: Patient - History of Present Illness Narrative History of Present Illness (Text): 05/29/18 18:27 A 52 year old male presents to the ed with a complaint of muscle aches, weakness, congestions, diarrhea, and chest tightness. The patient states that his symptoms have been worsening over the past few days with the weather jose raul nges. He notes that his symptoms started with rhinorrhea, and then cold- like symptoms for which he was taking Vicks DayQuil. He notes worsening symptoms and weakness. He reports chest congestion and tightness. The patient denies fevers, chills, headache, dizziness, chest pain, shortness of breath, dyspnea on exertion, cough, abdominal pain, nausea, vomiting, diarrhea, back pain, neck pain, urinary/bowel changes, or any other complaint. PMD: Dr. Milner Time/Duration: Other (Today) Symptom Onset: Sudden Symptom Course: Unchanged Activities at Onset: Rest, Light Context: Home Past Medical History - Provider Review Nursing Documentation Reviewed: Yes - Past History Past History: No Previous - Infectious Disease Hx of Infectious Diseases: None - Cardiac Hx Cardiac Disorders: Yes Hx Hypertension: Yes - Pulmonary Hx Respiratory Disorders: Yes Hx Bronchitis: Yes - Neurological Hx Neurological Disorder: No - HEENT Hx HEENT Disorder: No - Renal Hx Renal Disorder: No - Endocrine/Metabolic Hx Endocrine Disorders: No - Hematological/Oncological Hx Blood Disorders: No - Integumentary Hx Dermatological Disorder: Yes Other/Comment: TINEA - Musculoskeletal/Rheumatological Hx Musculoskeletal Disorders: Yes Hx Arthritis: Yes - Gastrointestinal Hx Gastrointestinal Disorders: No - Genitourinary/Gynecological Hx Genitourinary Disorders: No - Psychiatric Hx Psychophysiologic Disorder: No Hx Substance Use: No - Surgical History Hx Eye Surgery: Yes Hx Orthopedic Surgery: Yes (R KNEE) - Anesthesia Hx Anesthesia: Yes Hx Anesthesia Reactions: No Hx Malignant Hyperthermia: No Family/Social History - Physician Review Nursing Documentation Reviewed: Yes Family/Social History: No Known Family HX Smoking Status: Former Smoker Hx Alcohol Use: No Hx Substance Use: No Hx Substance Use Treatment: No Allergies/Home Meds Allergies/Adverse Reactions: Allergies No Known Allergies Allergy (Verified 05/21/18 02:08) Home Medications: Home Meds Medication Instructions Recorded Confirmed amLODIPine [Norvasc] 10 mg PO DAILY 02/06/19 04/11/19 Review of Systems - Physician Review All systems were reviewed & negative as marked: Yes - Review of Systems Constitutional: absent: Fevers Respiratory: absent: SOB, Cough Cardiovascular: Other (Chest congestion and tightness). absent: Chest Pain, LY Gastrointestinal: absent: Abdominal Pain, Stool Changes, Diarrhea, Nausea, Vomiting Genitourinary Male: absent: Urinary Output Changes Musculoskeletal: Myalgias. absent: Back Pain, Neck Pain Neurological: absent: Headache, Dizziness Physical Exam Vital Signs Reviewed: Yes Vital Signs Temp Pulse Resp BP Pulse Ox 05/29/18 18:07 98.0 F 81 18 121/84 99 Temperature: Afebrile Blood Pressure: Normal Pulse: Regular Respiratory Rate: Normal Appearance: Positive for: Well-Appearing, Non-Toxic, Comfortable Pain Distress: None Mental Status: Positive for: Alert and Oriented X 3 - Systems Exam Head: Present: Atraumatic, Normocephalic Pupils: Present: PERRL Extroacular Muscles: Present: EOMI Conjunctiva: Present: Normal Mouth: Present: Moist Mucous Membranes Neck: Present: Normal Range of Motion Respiratory/Chest: Present: Good Air Exchange, Wheezes (Mild expiratory wheeze. ), Other (Coarse breath sounds bilaterally. ). No: Respiratory Distress, Accessory Muscle Use Cardiovascular: Present: Regular Rate and Rhythm, Normal S1, S2. No: Murmurs Abdomen: No: Tenderness, Distention, Peritoneal Signs Back: Present: Normal Inspection Upper Extremity: Present: Normal Inspection. No: Cyanosis, Edema Lower Extremity: Present: Normal Inspection. No: Edema Neurological: Present: GCS=15, CN II-XII Intact, Speech Normal Skin: Present: Warm, Dry, Normal Color. No: Rashes Psychiatric: Present: Alert, Oriented x 3, Normal Insight, Normal Concentration Medical Decision Making ED Course and Treatment: 05/29/18 18:34 Impression: A 52 year old male presents to the emergency department with a complaint of generalized weakness, muscle aches, and cold- like symptoms. Plan: -- Chest X-ray -- Labs -- Duoneb and SOLU- Medrol -- Reassess and disposition Prior Visits: Notes and results from previous visits were reviewed. Progress Notes: 05/29/18 19:46 On re-evaluation, patient feels better and is in no acute distress. I have discussed the results and plan with the patient, who expresses understanding. Patient in agreement with plan to be discharged home. Patient is stable for discharge. Patient was instructed to follow up with physician or return if symptoms worsen or new concerning symptoms arise. - Lab Interpretations I have reviewed the lab results: Yes - RAD Interpretation Radiology Orders: 05/29/18 18:18 CHEST PORTABLE [RAD] Stat - Medication Orders Current Medication Orders: Discontinued Medications Albuterol/Ipratropium (Duoneb 3 Mg/0.5 Mg (3 Ml) Ud) 3 ml IH STAT STA Stop: 05/29/18 18:19 Methylprednisolone (Solu-Medrol) 125 mg IVP STAT STA Stop: 05/29/18 18:19 - Scribe Statement The provider has reviewed the documentation as recorded by the Scribe Agustina Sandhu Provider Scribe Attestation: All medical record entries made by the Scribe were at my direction and per sonally dictated by me. I have reviewed the chart and agree that the record accurately reflects my personal performance of the history, physical exam, medical decision making, and the department course for this patient. I have also personally directed, reviewed, and agree with the discharge instructions and disposition. Disposition/Present on Arrival - Present on Arrival Any Indicators Present on Arrival: No History of DVT/PE: No History of Uncontrolled Diabetes: No Urinary Catheter: No History of Decub. Ulcer: No History Surgical Site Infection Following: None - Disposition Have Diagnosis and Disposition been Completed?: Yes Diagnosis: Bronchitis Disposition: HOME/ ROUTINE Disposition Time: 19:42 Patient Plan: Discharge Discharge Instructions (ExitCare): Acute Bronchitis, Adult (DC) Print Language: SLOVENIAN Additional Instructions: All medical record entries made by the Scribe were at my direction and personally dictated by me. I have reviewed the chart and agree that the record accurately reflects my personal performance of the history, physical exam, medical decision making, and the department course for this patient. I have also personally directed, reviewed, and agree with the discharge instructions and disposition. Please follow up with your PCP in 3-5 days Prescriptions: Azithromycin [Z-Moy] 250 mg PO DAILY #6 tab Methylprednisolone [Medrol Dose Pack (21 tabs)] 4 mg PO DAILY #21 mg Referrals: Shamar Gilliam MD [Staff Provider] - Follow up with primary Forms: [facility] ([place]), WORK NOTE
[2018-05-29 18:50] LABS: VENOUS BLOOD GAS BASE EXCESS 3.6 mmol/L (0.0-2.0); VENOUS BLOOD GAS PO2 41 mm/Hg (30-55); VENOUS BLOOD PH 7.37 (7.32-7.43)
[2018-05-29 18:57] LABS: BASO # 0.03 K/mm3 (0.0-2.0); BASO % 0.5 % (0.0-3.0); EOS # 0.1 (0.0-0.7); EOS % 0.8 % (1.5-5.0); HEMOGLOBIN 13.1 g/dL (14.0-18.0); LYMPH # 2.1 (1.2-3.4); LYMPH % 33.7 % (22.0-35.0); MEAN CELL VOLUME 88.3 fl (80.0-105.0); MEAN CORPUSCULAR HEMOGLOBIN 27.9 pg (25.0-35.0); MEAN CORPUSCULAR HGB CONC 31.6 g/dl (31.0-37.0); MONO # 0.3 (0.1-0.6); MONO % 5.2 % (1.0-6.0); RBC 4.69 10^6/uL (3.5-6.1); RED CELL DISTRIBUTION WIDTH 14.3 % (11.5-14.5); WHITE BLOOD COUNT 6.2 10^3/uL (4.5-11.0)
[2018-05-29 19:06] LABS: ALB/GLOB RATIO 1.3 (1.1-1.8); ALBUMIN 3.9 g/dL (3.0-4.8); ALT/SGPT 9 U/L (7-56); AST/SGOT 28 U/L (17-59); BLOOD UREA NITROGEN 16 mg/dL (7-21); CALCIUM 8.5 mg/dL (8.4-10.5); GFR NON-AFRICAN AMERICAN > 60
[2018-05-29 19:13] LABS: B-TYPE NATRIURETIC PEPTIDE 38.9 pg/mL (0-450)
[2018-05-29] MEDS ORDERED: Albuterol 0.083% Inhal Sol (2.5 mg/3 mL) UD INH STA (19:22)
[2018-05-29 19:58] VITALS: BP 120/80; PULSE 80; TEMP 97.9; O2SAT 100
--- NOTE | 2018-05-30 10:50 | RAD ---
Date of service: 05/29/2018 HISTORY: sob COMPARISON: 02/02/2018 TECHNIQUE: 1 view obtained. FINDINGS: LUNGS: No active pulmonary disease. PLEURA: No significant pleural effusion identified, no pneumothorax apparent. CARDIOVASCULAR: No aortic atherosclerotic calcification present. Normal cardiac size. No pulmonary vascular congestion. OSSEOUS STRUCTURES: No significant abnormalities. VISUALIZED UPPER ABDOMEN: Normal. OTHER FINDINGS: None. IMPRESSION: No active disease.
== END 2018-05-29 19:58 | disposition home or self-care (01) ==
LOC: ED 17:46
DX: J40 Bronchitis, not specified as acute or chronic (principal); I10 Essential (primary) hypertension; Z87.891 Personal history of nicotine dependence
CPT/HCPCS: 71045; 80053; 82803; 83735; 83880; 85025; 96374; 99284; J2930

== ENCOUNTER 2018-06-17 05:45 | Emergency (ER) | payer OTHER ==
[2018-06-17 05:45] VITALS: BMI 27.3
[2018-06-17 05:57] VITALS: BP 133/92; PULSE 77; RESP 18; TEMP 97.9; O2SAT 95
--- NOTE | 2018-06-17 06:10 | ED PDOC ---
Arrival/HPI - General Chief Complaint: Abnormal Skin Integrity Time Seen by Provider: 06/17/18 06:03 Historian: Patient - History of Present Illness Narrative History of Present Illness (Text): Patient reports 2-3 day history of "bump" on his chin that then started draining pus yesterday. This morning woke up with swelling and pain to right neck. Denies fever, nausea, vomiting. Reports some pain with swallowing. No other complaints. Time/Duration: < week Past Medical History - Provider Review Nursing Documentation Reviewed: Yes JELENA Report Viewed: Yes - Travel History Have you recently traveled outside [place] w/in the past 3 mons?: No - Past History Past History: No Previous - Infectious Disease Hx of Infectious Diseases: None - Cardiac Hx Cardiac Disorders: Yes Hx Hypertension: Yes - Pulmonary Hx Respiratory Disorders: Yes Hx Bronchitis: Yes - Neurological Hx Neurological Disorder: No - HEENT Hx HEENT Disorder: No - Renal Hx Renal Disorder: No - Endocrine/Metabolic Hx Endocrine Disorders: No - Hematological/Oncological Hx Blood Disorders: No - Integumentary Hx Dermatological Disorder: Yes Other/Comment: TINEA - Musculoskeletal/Rheumatological Hx Musculoskeletal Disorders: Yes Hx Arthritis: Yes - Gastrointestinal Hx Gastrointestinal Disorders: No - Genitourinary/Gynecological Hx Genitourinary Disorders: No - Psychiatric Hx Psychophysiologic Disorder: No Hx Substance Use: No - Surgical History Hx Eye Surgery: Yes Hx Orthopedic Surgery: Yes (R KNEE) - Anesthesia Hx Anesthesia: Yes Hx Anesthesia Reactions: No Hx Malignant Hyperthermia: No Family/Social History Family/Social History: Unknown Family HX Smoking Status: Former Smoker Hx Alcohol Use: No Hx Substance Use: No Hx Substance Use Treatment: No Allergies/Home Meds Allergies/Adverse Reactions: Allergies No Known Allergies Allergy (Verified 05/21/18 02:08) Home Medications: Home Meds Medication Instructions Recorded Confirmed amLODIPine [Norvasc] 10 mg PO DAILY 03/18/18 06/17/18 Review of Systems - Physician Review All systems were reviewed & negative as marked: Yes - Review of Systems Constitutional: Normal Eyes: Normal ENT: Other (Pain with swallowing) Respiratory: Normal Cardiovascular: Normal Gastrointestinal: Normal Skin: Abscess Neurological: Normal Physical Exam Vital Signs Reviewed: Yes Vital Signs Temp Pulse Resp BP Pulse Ox 06/17/18 05:54 97.9 F 77 18 133/92 H 95 Temperature: Afebrile Blood Pressure: Normal Pulse: Regular Respiratory Rate: Normal Appearance: Positive for: Well-Appearing, Non-Toxic, Comfortable Pain Distress: None Mental Status: Positive for: Alert and Oriented X 3 - Systems Exam Head: Present: Normocephalic Pupils: Present: PERRL Extroacular Muscles: Present: EOMI Conjunctiva: Present: Normal Mouth: Present: Moist Mucous Membranes Pharnyx: No: ERYTHEMA, EXUDATE, TONSILS ENLARGED, Uvular Deviation, Muffled/Hoarse Voice, [place] Neck: Present: Lymphadenopathy (R anterior cervical) Respiratory/Chest: Present: Clear to Auscultation Cardiovascular: Present: Regular Rate and Rhythm Abdomen: No: Tenderness Upper Extremity: Present: Normal Inspection Lower Extremity: Present: Normal Inspection Neurological: Present: GCS=15 Skin: Present: Warm, Dry, Normal Color, Other (Small area <1cm of induration and very minimal erythema with no fluctuance, resembles large zit) Psychiatric: Present: Alert, Oriented x 3 Medical Decision Making ED Course and Treatment: Patient with small area of induration to chin, no fluctuance noted. Patient re ports area has already drained purulent material. No need for I&D at this time. Patient also with R anterior cervical painful lymphadenopathy. Will discharge with Rx for clindamycin. Disposition/Present on Arrival - Present on Arrival Any Indicators Present on Arrival: No History of DVT/PE: No History of Uncontrolled Diabetes: No Urinary Catheter: No History of Decub. Ulcer: No History Surgical Site Infection Following: None - Disposition Have Diagnosis and Disposition been Completed?: Yes Diagnosis: Abscess or cellulitis of chin Disposition: HOME/ ROUTINE Disposition Time: 06:12 Condition: STABLE Discharge Instructions (ExitCare): Cellulitis (ED) Additional Instructions: ANEESH MURPHY, thank you for letting us take care of you today. Your provider was Shama Cage MD and you were treated for abscess on chin. The emergency medical care you received today was directed at your acute symptoms. If you were prescribed any medication, please fill it and take as directed. It may take several days for your symptoms to resolve. Return to the Emergency Department if your symptoms worsen, do not improve, or if you have any other problems. Please contact your doctor or call one of the physicians/clinics you have been referred to that are listed on the Patient Visit Information form that is included in your discharge packet. Bring any paperwork you were given at discharge with you along with any medications you are taking to your follow up visit. Our treatment cannot replace ongoing medical care by a primary care provider outside of the emergency department. Thank you for allowing the [facility] team to be part of your care today. If you had an X-Ray or CT scan: A Radiologist will review the ED reading if any change in treatment is needed we will contact you. If you had a blood, urine, or wound culture: It will take several days for the results, if any change in treatment is needed we will contact you. If you had an STI test: It will take 48 hours for the results. Please call after 1 week if you have not heard back. Prescriptions: Clindamycin [Cleocin] 300 mg PO TID #21 cap Referrals: Monty Jean-Baptiste MD [Primary Care Provider] - Follow up with primary
== END 2018-06-17 06:23 | disposition home or self-care (01) ==
LOC: ED 05:45
DX: L03.211 Cellulitis of face (principal)

== ENCOUNTER 2018-07-12 14:09 | Emergency (ER) | payer OTHER ==
[2018-07-12 14:39] VITALS: O2SAT 98; BMI 28.1
[2018-07-12] MEDS ORDERED: Sodium Chloride 0.9% 500 ML IV STA (14:41)
--- NOTE | 2018-07-12 14:51 | ED PDOC ---
Arrival/HPI - General Chief Complaint: Flu-like Symptoms Time Seen by Provider: 07/12/18 14:15 Historian: Patient - History of Present Illness Narrative History of Present Illness (Text): 52 y/o male with PMH of HTN presents to the ED c/o cough, congestion, sore throat, myalgias, and subjective fever x 1 week. Associated nonbloody diarrhea and chest pressure with coughing. Has been taking theraflu and dayquil for symptoms without relief, last dose yesterday. No recent travel or sick contacts. Denies smoking tobacco. Denies SOB, ear pain, neck pain/stiffness, back pain, visual changes, photophobia, dizziness, headache, abdominal pain, nausea, vomiting, constipation, urinary symptoms, chest pain, palpitations, rash, or any other associated symptoms. Past Medical History - Provider Review Nursing Documentation Reviewed: Yes - Past History Past History: No Previous - Infectious Disease Hx of Infectious Diseases: None - Cardiac Hx Cardiac Disorders: Yes Hx Hypertension: Yes - Pulmonary Hx Respiratory Disorders: Yes Hx Bronchitis: Yes - Neurological Hx Neurological Disorder: No - HEENT Hx HEENT Disorder: No - Renal Hx Renal Disorder: No - Endocrine/Metabolic Hx Endocrine Disorders: No - Hematological/Oncological Hx Blood Disorders: No - Integumentary Hx Dermatological Disorder: Yes Other/Comment: TINEA - Musculoskeletal/Rheumatological Hx Musculoskeletal Disorders: Yes Hx Arthritis: Yes - Gastrointestinal Hx Gastrointestinal Disorders: No - Genitourinary/Gynecological Hx Genitourinary Disorders: No - Psychiatric Hx Psychophysiologic Disorder: No Hx Substance Use: No - Surgical History Hx Eye Surgery: Yes Hx Orthopedic Surgery: Yes (R KNEE) - Anesthesia Hx Anesthesia: Yes Hx Anesthesia Reactions: No Hx Malignant Hyperthermia: No Family/Social History - Physician Review Nursing Documentation Reviewed: Yes Family/Social History: No Known Family HX Smoking Status: Former Smoker Hx Alcohol Use: No Hx Substance Use: No Hx Substance Use Treatment: No Allergies/Home Meds Allergies/Adverse Reactions: Allergies No Known Allergies Allergy (Verified 07/12/18 14:34) Home Medications: Home Meds Medication Instructions Recorded Confirmed amLODIPine [Norvasc] 10 mg PO DAILY 03/18/18 06/17/18 Review of Systems - Review of Systems Constitutional: Fevers Eyes: Normal. absent: Vision Changes, Photophobia ENT: Sore Throat, Rhinorrhea, Sinus Congestion Respiratory: Cough, Sputum Cardiovascular: Chest Pain Gastrointestinal: Diarrhea, Appetite Changes. absent: Abdominal Pain, Stool Changes, Constipation, Nausea, Vomiting, Hematochezia, Hematemesis Genitourinary Male: Normal. absent: Dysuria, Frequency Musculoskeletal: Normal. absent: Back Pain, Neck Pain Skin: Normal. absent: Rash Neurological: Dizziness (lightheadedness). absent: Headache Physical Exam Vital Signs Reviewed: Yes Vital Signs Temp Pulse Resp BP Pulse Ox 07/12/18 14:10 98.6 F 69 18 130/86 98 Temperature: Afebrile Blood Pressure: Normal Pulse: Regular Respiratory Rate: Normal Appearance: Positive for: Well-Appearing, Non-Toxic, Comfortable Pain Distress: None Mental Status: Positive for: Alert and Oriented X 3 - Systems Exam Head: Present: Atraumatic, Normocephalic Pupils: Present: PERRL Extroacular Muscles: Present: EOMI Conjunctiva: Present: Normal Ears: Present: Normal, NORMAL TM, Normal [place] Mouth: Present: Moist Mucous Membranes Pharnyx: Present: ERYTHEMA (bilateral tonsils and posterior pharynx), TONSILS ENLARGED (mild bilaterally). No: EXUDATE, Peritonsilar Swelling, Uvular Deviation, Muffled/Hoarse Voice Nose (Internal): Present: Normal Inspection, Moist. No: Rhinorrhea Neck: Present: Normal Range of Motion. No: Meningeal Signs Respiratory/Chest: Present: Clear to Auscultation, Good Air Exchange. No: Respiratory Distress, Accessory Muscle Use Cardiovascular: Present: Regular Rate and Rhythm, Normal S1, S2, Peripheal Pulses Present Abdomen: Present: Normal Bowel Sounds. No: Tenderness, Distention, Peritoneal Signs Back: Present: Normal Inspection. No: CVA Tenderness Upper Extremity: Present: Normal Inspection, Normal ROM. No: Cyanosis, Edema Lower Extremity: Present: Normal Inspection, Normal ROM. No: Edema Neurological: Present: GCS=15, Speech Normal, Motor Func Grossly Intact, Normal Sensory Function, Gait Normal Skin: Present: Warm, Dry, Normal Color. No: Rashes Lymphatic: No: Cervical Adenopathy Psychiatric: Present: Alert, Oriented x 3, Normal Insight, Normal Concentration, Normal Affect, Normal Mood Medical Decision Making ED Course and Treatment: 14:50 Initial Plan: * Labs * Rapid strep, rapid flu * CXR * EKG * IVF 16:09 Bloodwork reviewed, unremarkable. No leukocytosis or electrolyte abnormalities Rapid strep negative Rapid flu negative CXR negative for active disease EKG shows no acute ischemia Advised PMD followup and supportive measures. Patient demanding antibiotics. Educated patient that there is no indication for antibiotics as this is most likely a viral syndrome. Advised rest and fluids. Provided with cough medicine prescription. Diagnostic testing results and plan of care discussed with patient. Strict instructions given regarding prescription use, importance of followup, and signs/symptoms to return to ER including SOB, vomiting, abdominal pain, or any other new/worsening symptoms. Pt verbalized understanding of discussion. Patient is A&Ox3, ambluating with steady gait, with vital signs stable for discharge. - Lab Interpretations Lab Results: 07/12/18 15:10 07/12/18 15:10 Lab Results 07/12/18 15:15: Influenza Typ A,B (EIA) Negative for flu a/b, Grp A Beta Strep Ag Negative 07/12/18 15:10: Sodium 141, Potassium 3.9, Chloride 107, Carbon Dioxide 28, Anion Gap 11, BUN 16, Creatinine 1.1, Est GFR ( Amer) > 60, Est GFR (Non- Af Amer) > 60, Random Glucose 94, Calcium 8.6, Magnesium 2.1, Total Bilirubin 0.9, AST 29, ALT 22, Alkaline Phosphatase 61, Troponin I < 0.01, Total Protein 7.2, Albumin 4.0, Globulin 3.1, Albumin/Globulin Ratio 1.3 07/12/18 15:10: WBC 6.8, RBC 4.81, Hgb 13.1 L, Hct 42.5, MCV 88.4, MCH 27.2, MCHC 30.8 L, RDW 13.8, Plt Count 222, MPV 9.5, Neut % (Auto) 56.9, Lymph % (Auto) 35.5 H, [place] % (Auto) 6.4 H, Eos % (Auto) 0.6 L, Baso % (Auto) 0.6, Lymph # (Auto) 2.4, [place] # (Auto) 0.4, Eos # (Auto) 0.0, Baso # (Auto) 0.04, Absolute Neuts (auto) 3.86 I have reviewed the lab results: Yes - RAD Interpretation Radiology Orders: 07/12/18 14:38 CXR (PA/LAT) [CHEST TWO VIEWS (PA/LAT)] [RAD] Stat - EKG Interpretation EKG Interpretation (Text): Rate 68; NSR; Normal intervals; No STEMI or other signs of acute ischemia Interpreted by ED Physician: Yes Type: 12 lead EKG Comparison: Com.w/previous EKG - Medication Orders Current Medication Orders: Sodium Chloride (Sodium Chloride 0.9%) 500 mls @ 999 mls/hr IV .Q31M STA Stop: 07/12/18 15:11 Disposition/Present on Arrival - Present on Arrival Any Indicators Present on Arrival: No History of DVT/PE: No History of Uncontrolled Diabetes: No Urinary Catheter: No History of Decub. Ulcer: No History Surgical Site Infection Following: None - Disposition Have Diagnosis and Disposition been Completed?: Yes Diagnosis: Viral syndrome Disposition: HOME/ ROUTINE Disposition Time: 17:00 Patient Plan: Discharge Condition: IMPROVED Discharge Instructions (ExitCare): Viral Syndrome (DC) Additional Instructions: Flonase 2 sprays in each nostril daily Tessalon perles every 8 hours as needed Followup with primary doctor within 2 days Return to ER with any new/worsening symptoms Prescriptions: Benzonatate [Tessalon Perle] 100 mg PO Q8H PRN #15 capsule PRN Reason: Cough Fluticasone Propionate [Flonase] 2 spr NS DAILY #1 bottle [place] [facility] [place] - Follow up with primary Madeline Powers MD [Medical Doctor] - Follow up with primary Forms: [facility] (K[place]ili), WORK NOTE
[2018-07-12 15:59] LABS: ALB/GLOB RATIO 1.3 (1.1-1.8); ALT/SGPT 22 U/L (7-56); AST/SGOT 29 U/L (17-59); BLOOD UREA NITROGEN 16 mg/dL (7-21); CALCIUM 8.6 mg/dL (8.4-10.5); GFR NON-AFRICAN AMERICAN > 60
[2018-07-12 15:59] LABS: INFLUENZA A B NEGATIVE FOR FLU A/B (NEGATIVE)
[2018-07-12 16:04] LABS: BASO # 0.04 K/mm3 (0.0-2.0); BASO % 0.6 % (0.0-3.0); EOS % 0.6 % (1.5-5.0); HEMOGLOBIN 13.1 g/dL (14.0-18.0); LYMPH # 2.4 (1.2-3.4); LYMPH % 35.5 % (22.0-35.0); MEAN CELL VOLUME 88.4 fl (80.0-105.0); MEAN CORPUSCULAR HEMOGLOBIN 27.2 pg (25.0-35.0); MEAN CORPUSCULAR HGB CONC 30.8 g/dl (31.0-37.0); MEAN PLATELET VOLUME 9.5 fl (7.0-11.0); MONO # 0.4 (0.1-0.6); MONO % 6.4 % (1.0-6.0); RBC 4.81 10^6/uL (3.5-6.1); RED CELL DISTRIBUTION WIDTH 13.8 % (11.5-14.5); WHITE BLOOD COUNT 6.8 10^3/uL (4.5-11.0)
[2018-07-12 16:22] LABS: TROPONIN I < 0.01 ng/mL
[2018-07-12 16:23] VITALS: BP 129/86; PULSE 70; RESP 16; TEMP 98.5
--- NOTE | 2018-07-12 17:00 | RAD ---
Date of service: 07/12/2018 HISTORY: r/o pneumonia COMPARISON: Chest radiograph dated 05/29/2018. TECHNIQUE: Chest PA and lateral views FINDINGS: LUNGS: No active pulmonary disease. PLEURA: No significant pleural effusion identified. No pneumothorax apparent. CARDIOVASCULAR: No aortic atherosclerotic calcification present. Normal cardiac size. No pulmonary vascular congestion. OSSEOUS STRUCTURES: No significant abnormalities. VISUALIZED UPPER ABDOMEN: Normal. OTHER FINDINGS: None. IMPRESSION: No active disease.
--- NOTE | 2018-07-13 11:47 | CARD ---
APPROVED REPORT Date of service: 07/12/2018 EKG Measurement Heart [id number] <Conclusion> Normal sinus rhythm Normal ECG
== END 2018-07-12 17:35 | disposition home or self-care (01) ==
LOC: ED 14:09
DX: B34.9 Viral infection, unspecified (principal); I10 Essential (primary) hypertension; Z87.891 Personal history of nicotine dependence
CPT/HCPCS: 71046; 80053; 83735; 84484; 85025; 87070; 87430; 87804; 93005; 99284; J7040